=== PATIENT | male | born 1945 | race Caucasian/White ===

== ENCOUNTER → 2019-08-25 08:42 | Outpatient (CLI) | payer OTHER, SELFPAY ==
[2019-08-25 10:38] LABS: Add Manual Diff / Slide Review NO; Basophils Absolute Auto 0 /uL (0-100); Basophils Percent Auto 0.9 % (0-2); Eosinophils Absolute Auto 100 /uL (0-450); Eosinophils Percent Auto 1.5 % (2-4); Hematocrit 37.5 % (41-53); Hemoglobin 12.9 g/dL (13.5-17.5); Lymphocytes Absolute Auto 1000 /uL (1100-4500); Mean Corpuscular HGB Conc 34.5 % (30-36); Mean Corpuscular Volume 89.8 fL (80-100); Monocytes Absolute Auto 600 /uL (0-900); Monocytes Percent Auto 10.7 % (3-14); Neutrophils Absolute Auto 3700 /uL (1500-7000); Neutrophils Percent Auto 68.9 % (50-75); Platelet Count 278 X10^3/uL (150-400); Red Blood Cell Count 4.17 X10^6/uL (4.5-5.9); Red Cell Distribution Width 15.2 % (11.6-14.8); White Blood Cell Count 5.3 X10^3/uL (4.5-11.0)
[2019-08-25 10:52] LABS: Alanine Aminotransferase 44 IU/L (<50); Albumin 3.7 g/dL (3.5-5.0); Albumin Globulin Ratio 1.3 (1.0-2.8); Alkaline Phosphatase 89 U/L (38-126); Aspartate Aminotransferase 61 IU/L (17-59); BUN Creatinine Ratio 25.7 (6-22); Bilirubin Total 0.6 mg/dL (0.2-1.3); Blood Urea Nitrogen 18 mg/dL (9-20); Calcium 9.2 mg/dL (8.4-10.2); Carbon Dioxide 25 mmol/L (22-32); Chloride 105 mmol/L (98-107); Cholesterol 148 mg/dL (140-199); Estimated Glomerular Filt Rate > 60.0 mL/min (>60); Globulin 2.8 g/dL (1.7-4.1); Glucose 112 mg/dL (80-110); HDL Cholesterol 41 mg/dL (40-60); HEMOLYSIS < 15 (0-50); LDL Cholesterol Calculated 94 mg/dL (<100); Potassium 3.8 mmol/L (3.4-5.1); Sodium 137 mmol/L (137-145); Total Protein 6.5 g/dL (6.3-8.2); Triglycerides 66 mg/dL (35-150)
[2019-08-25 11:23] LABS: Thyroid Stimulating Hormone 2.51 uIU/mL (0.47-4.68)
== END ==
PROVIDERS: PCP Family Medicine; Visit Provider Nurse Practitioner
DX: F31.12 Bipolar disorder, current episode manic without psychotic features, moderate (principal); Z79.899 Other long term (current) drug therapy; R10.9 Unspecified abdominal pain; M54.16 Radiculopathy, lumbar region; Z85.46 Personal history of malignant neoplasm of prostate
CPT/HCPCS: 36415; 80053; 80061; 84443; 85025

== ENCOUNTER 2019-08-29 22:08 | Emergency (ER) | payer OTHER, SELFPAY ==
[2019-08-29 22:14] VITALS: BP 146/68; PULSE 90; RESP 14; TEMP 37.1; O2SAT 99; BMI 28.8
--- NOTE | 2019-08-29 22:39 | ED_ITS ---
HPI - Extremity Problem General Chief complaint: Extremity Problem,Nontraumatic Stated complaint: SWELLING OF LEGS AND FEET Time Seen by Provider: 08/29/19 22:08 Source: patient Mode of arrival: Wheelchair Limitations: no limitations History of Present Illness HPI Narrative: 73M former smoker with history of a bipolar presents with a chief complaint of bilateral lower extremity swelling for the past a few days to weeks. Patient has a history of the same and had been on a ?water pills? in the past. Patient was seen and evaluated at the walk-in clinic a few days ago and had extensive lab work which was unremarkable. Patient denies any chest pain or shortness of breath. He denies any exertional dyspnea. He has had no runny nose, sore throat or cough. He has had no fever or chills. MD Complaint: extremity swelling Onset (ago): day(s) Location: left, right and lower extremity Radiation: none Relieving factors: nothing Exacerbating factors: nothing Related Data Previous Rx's Medication Instructions Recorded furosemide 20 mg PO QAM #30 tab 02/12/17 citalopram 40 mg PO QDAY #30 tab 03/20/17 lamotrigine [Lamictal] 50 mg PO Q DAY #70 tab 03/27/17 furosemide [Lasix] 40 mg PO DAILY #7 tab 08/29/19 hydroxyzine HCl 25 mg PO QID PRN #20 tab 08/29/19 lamotrigine [Lamictal] 50 mg PO Q12H 14 Days #56 tab 08/29/19 potassium chloride 20 meq PO DAILY #7 tab 08/29/19 Allergies Allergy/AdvReac Type Severity Reaction Status Date / Time No Known Drug Allergies Allergy Verified 08/29/19 22:17 Review of Systems Constitutional Constitutional: Denies chills, Denies fatigue, Denies fever(s), Denies frequent falls, Denies lethargy and Denies weakness Eyes Eyes: Denies change in vision, Denies eye discharge, Denies irritation and Denies loss of vision ENT Ears, Nose, Mouth, and Throat: Denies change in voice, Denies dizziness, Denies neck pain, Denies sore throat and Denies throat swelling Cardiovascular Cardiovascular: Denies chest pain, Denies irregular heart rhythm, Reports leg edema, Denies lightheadedness, Denies palpitations, Denies dyspnea, Denies dyspnea on exertion and Denies orthopnea Respiratory Respiratory: Denies cough, Denies dyspnea, Denies dyspnea on exertion and Denies wheezing Gastrointestinal Gastrointestinal: Denies abdominal pain, Denies change in bowel habits, Denies diarrhea, Denies nausea and Denies vomiting Genitourinary Genitourinary: Denies hematuria, Denies flank pain, Denies urinary incontinence and Denies urinary urgency Musculoskeletal Musculoskeletal: Denies back pain, Denies muscle weakness, Denies neck pain, Denies numbness and Denies tingling Integumentary/Breasts Skin/Breast: Denies pruritus, Denies erythema, Denies rash and Denies wounds Neurologic Neurologic: Denies behavioral changes, Denies confusion, Denies dizziness, Denies frequent falls, Denies loss of vision, Denies numbness, Denies tingling and Denies weakness Psychiatric Psychiatric: Denies anxiety, Denies behavioral changes, Denies confusion, Denies depression, Denies homicidal ideation and Denies suicidal ideation Endocrine Endocrine: Denies fatigue, Denies flushing and Denies palpitations Hematologic/Lymphatic Hematologic/Lymphatic: Denies easy bruising Allergic/Immunologic Allergic/Immunologic: Denies urticaria, Denies throat swelling and Denies wheezing Patient History Social History Smoking Status: Former smoker Smoking Status: Former smoker Substance Use Type: does not use Exam Narrative Exam Narrative: GEN: AOx3 and in mild distress EYES: Pupils are equal, round, and reactive to light and accommodation. Extraoccular muscles are intact bilaterally. There is no subconjunctival hemorrhage or exudate. CHEST: Lungs are clear to auscultation bilaterally and free of wheezes, rales, or rhonchi. Heart rate is regular rhythm, there are no murmurs, clicks, rubs, or gallops. There is no chest wall tenderness. ABD: Abdomen is soft and nontender. There is no guarding or rebound. Bowel sounds are normal in all 4 quadrants. There is no mass or organomegaly. EXT: 2+ pitting edema B/L LE. No pain, redness or warmth. SKIN: Warm, pink, and dry. No erythema or rash Initial Vital Signs Initial Vital Signs: Vital Signs Temperature 98.8 F 08/29/19 22:14 Pulse Rate 90 08/29/19 22:14 Respiratory Rate 14 08/29/19 22:14 Blood Pressure 146/68 H 08/29/19 22:14 Pulse Oximetry 99 08/29/19 22:14 Course Orders Ordered: Discontinued Medications Furosemide (Lasix) 40 mg PO NOW ONE Stop: 08/29/19 22:49 Last Admin: 08/29/19 22:57 Dose: 40 mg Documented by: GUERDA Hydroxyzine Pamoate (Vistaril) 25 mg PO NOW ONE Stop: 08/29/19 22:49 Last Admin: 08/29/19 22:57 Dose: 25 mg Documented by: GUERDA Vital Signs Vital signs: Vital Signs - 8 hr 08/29/19 23:04 Pulse Rate 92 H Respiratory Rate 18 Blood Pressure 151/65 H Pulse Oximetry 99 MDM - Extremity (Nontraumatic) MDM Narrative Medical decision making narrative: extensive discussion with patient about evaluation including labs, EKG, and imaging. Patient feels great, and had normal eval a few days ago. He does not want any new work up. He understands return precautions. Discharge Plan Departure Patient Disposition: Home Clinical Impression: Edema of both legs, Bipolar 1 disorder Discharge Date/Time: 08/29/19 23:17 Instructions: DI for Peripheral Edema -- Bilateral Activity Restrictions/Additional Instructions: *You have been diagnosed with [bilateral lower extremity edema and bipolar] *What to do: *Take medications as directed: Prescriptions electronically transmitted to [email or web address] in [place] at your request *Follow up with your primary care provider as planned. Let them know you were seen in the Emergency Department and that we ask that you be seen in follow up *Return to ER if you should have any new, worsening or concerning symptoms Prescriptions: New hydroxyzine HCl 25 mg tablet 25 mg PO QID PRN (Reason: itching) Qty: 20 RF: 0 lamotrigine [Lamictal] 25 mg tablet 50 mg PO Q12H 14 Days Qty: 56 RF: 0 furosemide [Lasix] 40 mg tablet 40 mg PO DAILY Qty: 7 RF: 0 potassium chloride 20 mEq tablet extended release 20 meq PO DAILY Qty: 7 RF: 0 No Action furosemide 20 MG tablet 20 mg PO QAM Qty: 30 RF: 2 citalopram 40 MG tablet 40 mg PO QDAY Qty: 30 RF: 2 lamotrigine [Lamictal] 25 MG tablet 50 mg PO Q DAY Qty: 70 RF: 0 Referrals: Latonya Abdi DO [Primary Care Provider] -
[2019-08-29] MEDS: hydrOXYzine pamoate 25 MG CAPSULE PO (22:57)
[2019-08-29] MEDS: FUROSEMIDE 40 MG TABLET PO (22:57)
[2019-08-29 23:04] VITALS: BP 151/65; PULSE 92; RESP 18; O2SAT 99
== END 2019-08-29 23:17 | disposition home or self-care (01) ==
PROVIDERS: Emergency Provider Emergency Medicine; PCP Family Medicine
DX: R60.0 Localized edema (principal); F31.9 Bipolar disorder, unspecified
CPT/HCPCS: 99281; 99283

== ENCOUNTER 2019-08-30 18:57 | Emergency (ER) | payer OTHER, SELFPAY ==
--- NOTE | 2019-08-30 19:23 | PC.NURSE ---
1905 patient sitting in waiting room after getting coffee.
[2019-08-30 19:32] VITALS: BP 151/72; PULSE 92; RESP 17; TEMP 36.9; O2SAT 99; BMI 28.8
--- NOTE | 2019-08-30 19:41 | ED.BACK ---
HPI - Back Pain/Injury General Chief Complaint: Back Pain/Injury Stated Complaint: multiple complaints of pain on going issues Time Seen by Provider: 08/30/19 19:00 Source: patient Mode of arrival: Ambulatory Limitations: no limitations History of Present Illness HPI Narrative: 73-year-old male former smoker with a bipolar disorder returns for the 2nd time in 2 days. He was seen and evaluated last night and had complained of painless bilateral lower extremity edema for the past few days. He denied associated symptoms such as chest pain or shortness of breath and is not dizzy nor weak or lightheaded. He has had no fever chills. He was recently seen in the walk-in clinic and had extensive lab work which was unremarkable. Today he presents because he was sitting on the toilet and developed an episode of his chronic back pain and was hoping that we could give him some medications to help. He had taken Motrin but it upsets his stomach. He denies any injury. He denies any fever. He denies any radiation of pain or neurologic symptoms such as numbness, tingling or weakness. He denies problems with foot drop or difficulty controlling bowel or bladder. He denies saddle anesthesia. MD Complaint: back pain Onset (ago): month(s) Duration: improved and now resolved Similar Symptoms Previously: Yes Location: lumbar spine Severity: moderate Quality: aching Radiation: none Relieving factors: none Exacerbating factors: movement Context: bending Associated symptoms: denies other symptoms Related Data Previous Rx's Medication Instructions Recorded furosemide 20 mg PO QAM #30 tab 02/12/17 citalopram 40 mg PO QDAY #30 tab 03/20/17 lamotrigine [Lamictal] 50 mg PO Q DAY #70 tab 03/27/17 furosemide [Lasix] 40 mg PO DAILY #7 tab 08/29/19 hydroxyzine HCl 25 mg PO QID PRN #20 tab 08/29/19 lamotrigine [Lamictal] 50 mg PO Q12H 14 Days #56 tab 08/29/19 potassium chloride 20 meq PO DAILY #7 tab 08/29/19 ketorolac 10 mg PO Q6H PRN #14 tab 08/30/19 lidocaine [Lidoderm] 1 patch TOP DAILY #15 each 08/30/19 Allergies Allergy/AdvReac Type Severity Reaction Status Date / Time No Known Drug Allergies Allergy Verified 08/30/19 19:35 Review of Systems Constitutional Constitutional: Denies chills, Denies fatigue, Denies fever(s), Denies frequent falls, Denies lethargy and Denies weakness Eyes Eyes: Denies change in vision, Denies eye discharge, Denies irritation and Denies loss of vision ENT Ears, Nose, Mouth, and Throat: Denies change in voice, Denies dizziness, Denies neck pain, Denies sore throat and Denies throat swelling Cardiovascular Cardiovascular: Denies chest pain, Denies irregular heart rhythm, Reports leg edema, Denies lightheadedness, Denies palpitations, Denies dyspnea, Denies dyspnea on exertion and Denies orthopnea Respiratory Respiratory: Denies cough, Denies dyspnea, Denies dyspnea on exertion and Denies wheezing Gastrointestinal Gastrointestinal: Denies abdominal pain, Denies change in bowel habits, Denies diarrhea, Denies nausea and Denies vomiting Genitourinary Genitourinary: Denies hematuria, Denies flank pain, Denies urinary incontinence and Denies urinary urgency Musculoskeletal Musculoskeletal: Reports back pain, Denies muscle weakness, Denies neck pain, Denies numbness and Denies tingling Integumentary/Breasts Skin/Breast: Denies pruritus, Denies erythema, Denies rash and Denies wounds Neurologic Neurologic: Denies behavioral changes, Denies confusion, Denies dizziness, Denies frequent falls, Denies loss of vision, Denies numbness, Denies tingling and Denies weakness Psychiatric Psychiatric: Denies anxiety, Denies behavioral changes, Denies confusion, Denies depression, Denies homicidal ideation and Denies suicidal ideation Endocrine Endocrine: Denies fatigue, Denies flushing and Denies palpitations Hematologic/Lymphatic Hematologic/Lymphatic: Denies easy bruising Allergic/Immunologic Allergic/Immunologic: Denies urticaria, Denies throat swelling and Denies wheezing Patient History Social History Smoking Status: Former smoker Smoking Status: Former smoker alcohol intake frequency: 0-2 drinks per day Substance Use Type: does not use Exam Narrative Exam Narrative: GEN: AOx3 and in no obvious distress. Resting comfortably EYES: Pupils are equal, round, and reactive to light and accommodation. Extraoccular muscles are intact bilaterally. There is no subconjunctival hemorrhage or exudate. CHEST: Lungs are clear to auscultation bilaterally and free of wheezes, rales, or rhonchi. Heart rate is regular rhythm, there are no murmurs, clicks, rubs, or gallops. There is no chest wall tenderness. ABD: Abdomen is soft and nontender. There is no guarding or rebound. Bowel sounds are normal in all 4 quadrants. There is no mass or organomegaly. EXT: Full painless ROM of all extremities with no loss of sensation or strength. 2+ pitting edema unchanged since yesterday. SKIN: Warm, pink, and dry. No erythema or rash BACK: Back is nontender and free of any obvious external abnormalities. Patient exam is absent of any decreased range of motion, muscle spasm, CVA tenderness, or vertebral point tenderness. There are no symptoms of cauda equina such as saddle anesthesia, and decreased reflexes, decreased sensation or strength. Initial Vital Signs Initial Vital Signs: Vital Signs Temperature 98.5 F 08/30/19 19:32 Pulse Rate 92 H 08/30/19 19:32 Respiratory Rate 17 08/30/19 19:32 Blood Pressure 151/72 H 08/30/19 19:32 Pulse Oximetry 99 08/30/19 19:32 Course Orders Ordered: Discontinued Medications Cyclobenzaprine HCl (Flexeril 10 Mg Prepack) 1 bottle MISC SEEINSTR ONE Stop: 08/30/19 19:51 Last Admin: 08/30/19 20:02 Dose: 1 bottle Documented by: BOBBY Ketorolac Tromethamine (Toradol) 60 mg IM NOW ONE Stop: 08/30/19 19:51 Last Admin: 08/30/19 20:01 Dose: 60 mg Documented by: BOBBY Lidocaine (Lidoderm) 1 each TOP NOW ONE Stop: 08/30/19 19:51 Last Admin: 08/30/19 20:02 Dose: 1 each Documented by: BOBBY Vital Signs Vital signs: Vital Signs - 8 hr 08/30/19 19:32 08/30/19 20:15 Temperature 98.5 F Pulse Rate 92 H 93 H Respiratory Rate 17 16 Blood Pressure 151/72 H Blood Pressure [Left Arm] 148/65 H Pulse Oximetry 99 98 MDM - Back Pain/Injury MDM Narrative Medical decision making narrative: Multiple etiologies for patient's symptoms considered including: [Muscle spasm versus strain versus epidural abscess versus hematoma versus kidney stone versus AAA versus other] Patient's symptoms improved or duration of stay with above-stated therapies. Findings and discharge diagnosis discussed with patient/family followed by verbalization of understanding Return precautions discussed with patient/family whom verbalize understanding. Discharge Plan Departure Patient Disposition: Home Clinical Impression: Strain of lumbar region Qualifiers: Encounter type: initial encounter Qualified Code(s): S39.012A - Strain of muscle, fascia and tendon of lower back, initial encounter Discharge Date/Time: 08/30/19 20:17 Instructions: DI for Back Spasm Activity Restrictions/Additional Instructions: *You have been diagnosed with [ acute on chronic lumbar pain ] *What to do: *Take medications as directed *Follow up with your primary care provider in 2-3 days, call for an appointment. Let them know you were seen in the Emergency Department and that we ask that you be seen in follow up *Return to ER if you should have any new, worsening or concerning symptoms Prescriptions: New ketorolac 10 mg tablet 10 mg PO Q6H PRN (Reason: pain) Qty: 14 RF: 0 lidocaine [Lidoderm] 5 % adhesive patch,medicated 1 patch TOP DAILY Qty: 15 RF: 0 No Action furosemide 20 MG tablet 20 mg PO QAM Qty: 30 RF: 2 citalopram 40 MG tablet 40 mg PO QDAY Qty: 30 RF: 2 lamotrigine [Lamictal] 25 MG tablet 50 mg PO Q DAY Qty: 70 RF: 0 hydroxyzine HCl 25 mg tablet 25 mg PO QID PRN (Reason: itching) Qty: 20 RF: 0 lamotrigine [Lamictal] 25 mg tablet 50 mg PO Q12H 14 Days Qty: 56 RF: 0 furosemide [Lasix] 40 mg tablet 40 mg PO DAILY Qty: 7 RF: 0 potassium chloride 20 mEq tablet extended release 20 meq PO DAILY Qty: 7 RF: 0 Referrals: [facility] [Outside] [facility] [Outside] aLtonya Abdi DO [Primary Care Provider] -
[2019-08-30] MEDS: KETOROLAC 60 MG/2 ML VIAL IM (20:01)
[2019-08-30] MEDS: LIDOCAINE PATCH 1 EACH ADH..PATCH TOP (20:02)
[2019-08-30] MEDS: CYCLOBENZAPRINE 10 MG PREPACK 1 BOTTLE MISC (20:02)
--- NOTE | 2019-08-30 20:07 | PC.NURSE ---
CSM fully intact. Pain is across the waistband. No neuro deficit. Moving all extremities equally well.
[2019-08-30 20:15] VITALS: BP 148/65; PULSE 93; RESP 16; O2SAT 98
== END 2019-08-30 20:17 | disposition home or self-care (01) ==
PROVIDERS: Emergency Provider Emergency Medicine; PCP Family Medicine
DX: S39.012A Strain of muscle, fascia and tendon of lower back, initial encounter (principal)
CPT/HCPCS: 96372; 99281; 99283; J1885

== ENCOUNTER 2019-11-06 23:47 | Emergency (ER) | payer OTHER, SELFPAY ==
--- NOTE | 2019-11-07 00:01 | ED_ITS ---
HPI - Abdominal Pain General Chief Complaint: Chest Pain Stated Complaint: sharp pain right side of chest Time Seen by Provider: 11/06/19 23:47 Source: patient Mode of arrival: Ambulatory Limitations: no limitations History of Present Illness HPI narrative: 74-year-old male former smoker with history of bipolar presents with a chief complaint of right-sided sharp chest pain worse with breathing or moving. He denies any cough or shortness of breath. He denies any injury or obvious overuse. He has not recently been ill with runny nose, sneezing or fever. He denies other cardiac equivalent such as dizziness, weakness or lightheadedness. He denies any history of blood clot or cancer. He states the pain is sharp and stabbing. He denies exertional provocation MD complaint: other Onset (ago): day(s) Pain Consistency: intermittent Severity: moderate Quality: sharp Radiation: none Relieving factors: rest Exacerbating factors: other (movement, deep breath) Related Data Previous Rx's Medication Instructions Recorded hydroxyzine HCl 25 mg PO QID PRN #20 tab 08/29/19 potassium chloride 20 meq PO DAILY #7 tab 08/29/19 lidocaine [Lidoderm] 1 patch TOP DAILY #15 each 08/30/19 lamotrigine 25 mg tablet 25 mg PO BID 30 Days #60 tab 10/29/19 losartan 50 mg-hydrochlorothiazide 1 tab PO DAILY #30 tab 10/30/19 12.5 mg tablet sulfamethoxazole 800 1 tab PO BID #20 tab 10/30/19 mg-trimethoprim 160 mg tablet ketorolac 10 mg PO Q6H PRN #14 tab 11/07/19 Allergies Allergy/AdvReac Type Severity Reaction Status Date / Time No Known Drug Allergies Allergy Verified 10/30/19 15:42 Review of Systems Constitutional Constitutional: Denies chills, Denies fatigue, Denies fever(s), Denies frequent falls, Denies lethargy and Denies weakness Eyes Eyes: Denies change in vision, Denies eye discharge, Denies irritation and Denies loss of vision ENT Ears, Nose, Mouth, and Throat: Denies change in voice, Denies dizziness, Denies neck pain, Denies sore throat and Denies throat swelling Cardiovascular Cardiovascular: Reports chest pain, Denies irregular heart rhythm, Denies lightheadedness, Denies palpitations, Denies dyspnea, Denies dyspnea on exertion and Denies orthopnea Respiratory Respiratory: Denies cough, Denies dyspnea, Denies dyspnea on exertion and Denies wheezing Gastrointestinal Gastrointestinal: Denies abdominal pain, Denies change in bowel habits, Denies diarrhea, Denies nausea and Denies vomiting Genitourinary Genitourinary: Denies hematuria, Denies flank pain, Denies urinary incontinence and Denies urinary urgency Musculoskeletal Musculoskeletal: Denies back pain, Denies muscle weakness, Denies neck pain, Denies numbness and Denies tingling Integumentary/Breasts Skin/Breast: Denies pruritus, Denies erythema, Denies rash and Denies wounds Neurologic Neurologic: Denies behavioral changes, Denies confusion, Denies dizziness, Denies frequent falls, Denies loss of vision, Denies numbness, Denies tingling and Denies weakness Psychiatric Psychiatric: Denies anxiety, Denies behavioral changes, Denies confusion, Denies depression, Denies homicidal ideation and Denies suicidal ideation Endocrine Endocrine: Denies fatigue, Denies flushing and Denies palpitations Hematologic/Lymphatic Hematologic/Lymphatic: Denies easy bruising Allergic/Immunologic Allergic/Immunologic: Denies urticaria, Denies throat swelling and Denies wheezing Patient History Medical History Excessive daytime sleepiness (Acute) Social History Smoking Status: Former smoker Smoking Status: Former smoker alcohol intake frequency: 0-2 drinks per day Substance Use Type: does not use Exam Narrative Exam Narrative: GENERAL: [74] year old patient appears stated age. Well- nourished, well-developed patient, in mild distress. HEAD: Atraumatic. Normocephalic. EYES: Pupils equal round and reactive. Extraocular motions intact. No scleral i cterus. No injection or drainage. ENT: Nose without bleeding, purulent drainage. Throat without erythema, tonsillar hypertrophy or exudate. Airway patent. NECK: Trachea midline. Non tender CARDIOVASCULAR: Regular rate and rhythm without murmurs, gallops, or rubs. Not worsened with palpation but with deep breath RESPIRATORY: Clear to auscultation. Breath sounds equal bilaterally. No wheezes, rales, or rhonchi. GASTROINTESTINAL: Abdomen soft, non-tender, nondistended. EXTREMITIES: No edema or joint tenderness. BACK: Nontender without deformity or crepitance. No flank tenderness. NEURO: AOx3. SKIN: No rash or erythema of visible areas Initial Vital Signs Initial Vital Signs: Vital Signs Temperature 98.3 F 11/07/19 00:02 Pulse Rate 80 11/07/19 00:02 Respiratory Rate 20 11/07/19 00:02 Blood Pressure 145/63 H 11/07/19 00:02 Pulse Oximetry 98 11/07/19 00:02 Course Course Course Narrative: Patient had complete resolution of symptoms after above-stated therapies. Orders Ordered: ED Orders 11/07/19 00:09 EKG-12 Lead Stat 11/07/19 00:10 XR chest 2V Stat Complete Blood Count AUTO DIFF Stat Comprehensive Metabolic Panel Stat Lipase Stat Troponin & CK Cardiac Panel Stat Sodium Chloride (Normal Saline 0.9%) 1,000 mls @ 150 mls/hr IV CONT DALJIT Last Admin: 11/07/19 00:23 Dose: 150 mls/hr Documented by: JR Discontinued Medications Ketorolac Tromethamine (Toradol) 15 mg IV NOW ONE Stop: 11/07/19 00:10 Last Admin: 11/07/19 00:22 Dose: 15 mg Documented by: JR Vital Signs Vital signs: Vital Signs - 8 hr 11/07/19 00:02 Temperature 98.3 F Pulse Rate 80 Respiratory Rate 20 Blood Pressure 145/63 H Pulse Oximetry 98 MDM - Abdominal Pain Lab Data Result diagrams: 11/07/19 00:10 11/07/19 00:10 Labs: Lab Results 11/07/19 11/07/19 Range/Units 00:10 00:10 WBC 8.9 (4.5-11.0) X10^3/uL RBC 4.41 L (4.5-5.9) X10^6/uL Hgb 13.0 L (13.5-17.5) g/dL Hct 38.2 L (41-53) % MCV 86.7 (80-100) fL MCH 29.4 (26-34) PG MCHC 33.9 (30-36) % RDW 14.2 (11.6-14.8) % Plt Count 238 (150-400) X10^3/uL Neut % (Auto) 65.6 (50-75) % Lymph % (Auto) 20.7 L (25-40) % [place] % (Auto) 11.4 (3-14) % Eos % (Auto) 1.5 L (2-4) % Baso % (Auto) 0.8 (0-2) % Neut # (Auto) 5900 (6691-6990) /uL Lymph # (Auto) 1800 (7120-9960) /uL [place] # (Auto) 1000 H (0-900) /uL Eos # (Auto) 100 (0-450) /uL Baso # (Auto) 100 (0-100) /uL Sodium 135 L (137-145) mmol/L Potassium 3.8 (3.4-5.1) mmol/L Chloride 101 (98-107) mmol/L Carbon Dioxide 28 (22-32) mmol/L BUN 24 H (9-20) mg/dL Creatinine 1.00 (0.66-1.25) mg/dL Estimated GFR > 60.0 (>60) mL/min BUN/Creatinine Ratio 24.0 H (6-22) Glucose 131 H (80-110) mg/dL Calcium 9.1 (8.4-10.2) mg/dL Total Bilirubin 0.4 (0.2-1.3) mg/dL AST 41 (17-59) IU/L ALT 30 (<50) IU/L Alkaline Phosphatase 82 (38-126) U/L Total Creatine Kinase 406 H (55-170) U/L CK-MB (CK-2) 7.79 H (<2.37) ng/mL CK-MB (CK-2) Rel Index 1.9 (1.5-5.0) % Troponin I < 0.012 (0.01-0.034) ng/mL Total Protein 6.9 (6.3-8.2) g/dL Albumin 3.9 (3.5-5.0) g/dL Globulin 3.0 (1.7-4.1) g/dL Albumin/Globulin Ratio 1.3 (1.0-2.8) Lipase 68 (23-300) U/L Imaging Data Chest x-ray: My Impression: NAP. ECG Data Attestation: I personally reviewed and interpreted this ECG as follows: Prior ECG tracings: not available for review Interpretation: EKG is normal sinus rhythm rate [ 82] and free of any signs of ischemia or ectopy. No ST segmental elevation or depression. No T wave inversio ns. RBBB MDM Narrative Medical decision making narrative: Multiple causes of chest pain considered including [place], PE, pneumothorax, pneumonia, aortic dissection, and pleurisy. Patient reports no radiation, no diaphoresis, no provocation with exertion, and no vomiting Patient's symptoms improved or duration of stay with above-stated therapies. Findings and discharge diagnosis discussed with patient/family followed by verb alization of understanding Return precautions discussed with patient/family whom verbalize understanding. Discharge Plan Departure Patient Disposition: Home Clinical Impression: Atypical chest pain Instructions: DI for Atypical Chest Pain Activity Restrictions/Additional Instructions: *You have been diagnosed with [atypical chest pain] *What to do: *Take medications as directed: Electronically transmitted to [facility] at your request *Follow up with your primary care provider in 2-3 days, call for an appointment. Let them know you were seen in the Emergency Department and that we ask that you be seen in follow up *Return to ER if you should have any new, worsening or concerning symptoms Prescriptions: Continued ketorolac 10 mg tablet 10 mg PO Q6H PRN (Reason: pain) Qty: 14 RF: 0 No Action lamotrigine [Lamictal] 25 mg tablet 25 mg PO BID 30 Days Qty: 60 RF: 5 losartan-hydrochlorothiazide 50-12.5 mg tablet 1 tab PO DAILY Qty: 30 RF: 2 sulfamethoxazole-trimethoprim [Bactrim DS] 800-160 mg tablet 1 tab PO BID Qty: 20 RF: 0 hydroxyzine HCl 25 mg tablet 25 mg PO QID PRN (Reason: itching) Qty: 20 RF: 0 potassium chloride 20 mEq tablet extended release 20 meq PO DAILY Qty: 7 RF: 0 lidocaine [Lidoderm] 5 % adhesive patch,medicated 1 patch TOP DAILY Qty: 15 RF: 0 Referrals: David Caballero DO [Primary Care Provider] -
[2019-11-07 00:02] VITALS: BP 145/63; PULSE 80; RESP 20; TEMP 36.8; O2SAT 98
--- NOTE | 2019-11-07 00:10 | DI.RAD.S_ITS ---
PROCEDURE: XR CHEST 2V INDICATIONS: chest pain TECHNIQUE: 2 views of the chest were acquired. COMPARISON: None. FINDINGS: Surgical changes and devices: None. Lungs and pleura: Lungs are clear. No pleural effusions or pneumothorax. Mediastinum: Mediastinal contours are normal. Heart size is normal. Bones and chest wall: No suspicious bony abnormalities. Soft tissues appear unremarkable. IMPRESSION: No acute cardiopulmonary disease process. Dictated by: Poly Faust MD, PhD on 11/07/2019 at 8:18 Approved by: Poly Faust MD, PhD on 11/07/2019 at 8:18
[2019-11-07 00:20] LABS: Add Manual Diff / Slide Review NO; Basophils Absolute Auto 100 /uL (0-100); Basophils Percent Auto 0.8 % (0-2); Eosinophils Absolute Auto 100 /uL (0-450); Eosinophils Percent Auto 1.5 % (2-4); Hematocrit 38.2 % (41-53); Lymphocytes Absolute Auto 1800 /uL (1100-4500); Lymphocytes Percent Auto 20.7 % (25-40); Mean Corpuscular HGB Conc 33.9 % (30-36); Mean Corpuscular Hemoglobin 29.4 PG (26-34); Mean Corpuscular Volume 86.7 fL (80-100); Monocytes Absolute Auto 1000 /uL (0-900); Monocytes Percent Auto 11.4 % (3-14); Neutrophils Absolute Auto 5900 /uL (1500-7000); Neutrophils Percent Auto 65.6 % (50-75); Platelet Count 238 X10^3/uL (150-400); Red Blood Cell Count 4.41 X10^6/uL (4.5-5.9); Red Cell Distribution Width 14.2 % (11.6-14.8); White Blood Cell Count 8.9 X10^3/uL (4.5-11.0)
[2019-11-07] MEDS: KETOROLAC 60 MG/2 ML VIAL 15 MG IV (00:22)
[2019-11-07] MEDS: SODIUM CHLORIDE 0.9% 1,000 ML 150 ML IV (00:23)
[2019-11-07 00:28] LABS: Alanine Aminotransferase 30 IU/L (<50); Albumin 3.9 g/dL (3.5-5.0); Albumin Globulin Ratio 1.3 (1.0-2.8); Alkaline Phosphatase 82 U/L (38-126); Aspartate Aminotransferase 41 IU/L (17-59); Bilirubin Total 0.4 mg/dL (0.2-1.3); Blood Urea Nitrogen 24 mg/dL (9-20); Calcium 9.1 mg/dL (8.4-10.2); Carbon Dioxide 28 mmol/L (22-32); Chloride 101 mmol/L (98-107); Creatine Kinase 406 U/L (55-170); Estimated Glomerular Filt Rate > 60.0 mL/min (>60); Glucose 131 mg/dL (80-110); HEMOLYSIS < 15 (0-50); Lipase 68 U/L (23-300); Potassium 3.8 mmol/L (3.4-5.1); Sodium 135 mmol/L (137-145); Total Protein 6.9 g/dL (6.3-8.2)
[2019-11-07 00:40] LABS: Troponin I < 0.012 ng/mL (0.01-0.034)
[2019-11-07 00:43] LABS: CKMB % Relative Index 1.9 % (1.5-5.0); Creatine Kinase MB 7.79 ng/mL (<2.37)
[2019-11-07 01:53] VITALS: BP 139/60; PULSE 78; RESP 18; O2SAT 99
== END 2019-11-07 01:58 | disposition home or self-care (01) ==
PROVIDERS: Emergency Provider Emergency Medicine; PCP Family Medicine
DX: R07.89 Other chest pain (principal)
CPT/HCPCS: 71046; 80053; 82550; 82553; 83690; 84484; 85025; 93005; 93010; 96361; 96374; 99283; 99284; J1885

== ENCOUNTER → 2020-02-27 14:35 | Outpatient (CLI) | payer OTHER, SELFPAY ==
[2020-02-27 15:15] LABS: Add Manual Diff / Slide Review NO; Basophils Absolute Auto 100 /uL (0-100); Basophils Percent Auto 0.7 % (0-2); Eosinophils Absolute Auto 100 /uL (0-450); Eosinophils Percent Auto 1.9 % (2-4); Hematocrit 47.7 % (41-53); Hemoglobin 16.6 g/dL (13.5-17.5); Lymphocytes Absolute Auto 1700 /uL (1100-4500); Mean Corpuscular HGB Conc 34.9 % (30-36); Mean Corpuscular Hemoglobin 30.4 PG (26-34); Mean Corpuscular Volume 87.1 fL (80-100); Monocytes Absolute Auto 700 /uL (0-900); Monocytes Percent Auto 9.4 % (3-14); Neutrophils Absolute Auto 4800 /uL (1500-7000); Platelet Count 239 X10^3/uL (150-400); Red Blood Cell Count 5.47 X10^6/uL (4.5-5.9); Red Cell Distribution Width 14.4 % (11.6-14.8); White Blood Cell Count 7.4 X10^3/uL (4.5-11.0)
[2020-02-27 15:26] LABS: Alanine Aminotransferase 18 IU/L (<50); Albumin 4.9 g/dL (3.5-5.0); Albumin Globulin Ratio 1.6 (1.0-2.8); Alkaline Phosphatase 84 U/L (38-126); Aspartate Aminotransferase 29 IU/L (17-59); BUN Creatinine Ratio 23.9 (6-22); Bilirubin Total 0.9 mg/dL (0.2-1.3); Blood Urea Nitrogen 22 mg/dL (9-20); Calcium 9.9 mg/dL (8.4-10.2); Carbon Dioxide 27 mmol/L (22-32); Chloride 105 mmol/L (98-107); Estimated Glomerular Filt Rate > 60.0 mL/min (>60); Glucose 104 mg/dL (80-110); HEMOLYSIS < 15 (0-50); Potassium 4.4 mmol/L (3.4-5.1); Sodium 139 mmol/L (137-145); Total Protein 7.9 g/dL (6.3-8.2)
[2020-02-27 16:13] LABS: Vitamin B12 537 pg/mL (239-931)
[2020-02-27 16:29] LABS: Thyroid Stimulating Hormone 2.31 uIU/mL (0.47-4.68)
== END ==
PROVIDERS: PCP Family Medicine; Referring Provider Family Medicine; Visit Provider Family Medicine
DX: G47.19 Other hypersomnia (principal); I10 Essential (primary) hypertension
CPT/HCPCS: 36415; 80053; 82607; 84443; 85025

== ENCOUNTER 2020-10-15 02:03 | Emergency (ER) | payer OTHER, SELFPAY ==
[2020-10-15 02:14] VITALS: BP 162/84; PULSE 95; RESP 18; TEMP 36.4; O2SAT 95; BMI 28.1
--- NOTE | 2020-10-15 02:30 | DI.RAD.S_ITS ---
PROCEDURE: XR CHEST 2V INDICATIONS: cough TECHNIQUE: 2 views of the chest were acquired. COMPARISON: [facility], CR, XR CHEST 2V, 11/07/2019, 0:07. FINDINGS: Surgical changes and devices: None. Lungs and pleura: Lungs are clear. No pleural effusions or pneumothorax. Mediastinum: Mediastinal contours are normal. Heart size is normal. Bones and chest wall: Mild pectus deformity. No suspicious bony abnormalities. Soft tissues appear unremarkable. IMPRESSION: No acute cardiopulmonary disease process. Dictated by: Poly Faust MD, PhD on 10/15/2020 at 8:36 Approved by: Poly Faust MD, PhD on 10/15/2020 at 8:37
[2020-10-15 02:32] VITALS: BP 191/68; PULSE 94; RESP 18; O2SAT 96
--- NOTE | 2020-10-15 02:32 | ED.EXTPRO ---
HPI - Extremity Problem General Chief complaint: Extremity Problem,Nontraumatic Stated complaint: Leg Cramps Time Seen by Provider: 10/15/20 02:11 Source: patient Mode of arrival: other (bicycle) Limitations: no limitations History of Present Illness HPI Narrative: Patient is a 74-year-old male history of by alert presenting with a variety of complaints. He said that he has had leg cramps off and on for the past couple of months. They very pain in intensity hand location. He was able to ride his bike from his boat to the emergency department to have his leg cramps evaluated. He currently does not have any leg cramps. He said he woke up this evening to get something to eat got out of bed and had severe intense leg pain he was on all fours for about 5 minutes and then was able to get up. He spoke with a [facility] nurse who recommended he come to the ED for evaluation. He also states that he has had chronic ongoing cough for almost a year. He has a not any worse than normal. He denies any fever or sputum production. Denies any chest pain or shortness of breath. MD Complaint: extremity pain Onset (ago): month(s) Pain Consistency: now resolved Location: left, right and lower extremity Related Data Previous Rx's Medication Instructions Recorded ibuprofen 600 mg tablet 600 mg PO TID PRN #90 tab 01/21/20 lamotrigine 200 mg tablet 200 mg PO BID #60 tab 07/09/20 citalopram 40 mg tablet 40 mg PO DAILY #90 tab 08/06/20 hydroxyzine HCl 25 mg tablet 25 mg PO QID PRN #20 tab 08/06/20 Allergies Allergy/AdvReac Type Severity Reaction Status Date / Time No Known Drug Allergies Allergy Verified 08/06/20 10:52 Review of Systems Review of Systems Narrative: GENERAL: Denies chills, fatigue, malaise, fever, sweats, travel HEENT: Denies sinus pain, ear pain, sore throat, difficulty swallowing, neck pain RESPIRATORY: See HPI CARDIOVASCULAR: Denies chest pain, palpitations, orthopnea, edema GASTROINTESTINAL: Denies nausea, vomiting, abdominal pain, diarrhea, constipation, melena. : Denies dysuria, frequency, incontinence, hematuria, urinary retention, flank pain. MUSCULOSKELETAL: Denies weakness, joint pain, or bony pain SKIN: No rash, no erythema, no pruritus NEUROLOGIC: Denies weakness, dizziness, headache, numbness, change in speech, confusion PSYCHIATRIC: No concerning psychosocial issues. 12 point review of systems is negative except for those stated above and HPI Patient History Medical History Bilateral lower extremity edema Bipolar 1 disorder, depressed Excessive daytime sleepiness Leg wound, left Social History Smoking Status: Former smoker Smoking Status: Former smoker alcohol intake frequency: a few times a week Substance Use Type: does not use Exam Initial Vital Signs Initial Vital Signs: Vital Signs Temperature 97.5 F L 10/15/20 02:14 Pulse Rate 95 H 10/15/20 02:14 Respiratory Rate 18 10/15/20 02:14 Blood Pressure 162/84 H 10/15/20 02:14 Pulse Oximetry 95 10/15/20 02:14 GENERAL: Alert pleasant 74-year-old male and in no acute distress. HEENT: Head atraumatic,EOMI, pupils reactive, face symmetric, moist mucous membranes CARDIOVASCULAR: Regular rate and rhythm without murmurs, rubs or gallops. RESPIRATORY: Breath sounds equal bilaterally, no wheezes rales or rhonchi. ABDOMEN: Soft, nontender. Normoactive bowel sounds all 4 quadrants. No guarding or rebound. EXTREMITIES: Normal range of motion, no clubbing or edema. Neurovascularly intact. No calf pain or significant swelling NEUROLOGICAL: Alert and oriented x4.Normal gait and speech. Cranial nerves II through XII grossly intact. SKIN: Warm, dry, no laceration, no petechiae, no rashes or lesions. Right leg open sore no significant erythema or drainage no abscess or induration Course Orders Ordered: ED Orders 10/15/20 02:30 XR chest 2V Stat Discontinued Medications Ibuprofen (Ibuprofen 400 Mg Tablet) 800 mg PO NOW ONE Stop: 10/15/20 02:31 Last Admin: 10/15/20 02:35 Dose: 800 mg Documented by: Ibuprofen (Ibuprofen 400 Mg Tablet) 800 mg PO NOW ONE Stop: 10/15/20 02:32 Last Admin: 10/15/20 02:33 Dose: Not Given Documented by: Vital Signs Vital signs: Vital Signs - 8 hr 10/15/20 02:14 10/15/20 02:32 Temperature 97.5 F L Pulse Rate 95 H 94 H Respiratory Rate 18 18 Blood Pressure 162/84 H 191/68 H Pulse Oximetry 95 96 MDM - Extremity (Nontraumatic) Imaging Data Chest x-ray: Attestation: I personally reviewed and interpreted this imaging study as follows: My Impression: No acute cardiopulmonary process looks similar to previous chest x-ray Radiologist's Impression: Preliminary report chronic interstitial lung changes without focal consolidation MDM Narrative Medical decision making narrative: Patient was able to ride his bike here despite having leg cramps for 5 minutes. It sounds as though he is having chronic ongoing issues including leg cramps that are often on frequently along with a cough. Chest x-ray does not show any masses. He is given ibuprofen for his leg cramps which he no longer has. At this time I recommend he follow-up with his primary care provider for these ongoing issues. Discharge Plan Departure Patient Disposition: Home Clinical Impression: Chronic cough, Bilateral leg cramps Instructions: Nocturnal Leg Cramps, Stretching Routine Before Bedtime May Decrease Nighttime Leg Cramps Activity Restrictions/Additional Instructions: *You have been diagnosed with leg cramps *What to do: Have your electrolytes checked with her primary care provider fever continuing to have some leg cramps. I recommend some stretching and ibuprofen when you are having severe pain. Your chronic ongoing cough also needs evaluation by her primary care provider *Continue to take medications as directed Ibuprofen 600 mg every 6-8 hours if needed for [id number] pain *Follow up with your primary care provider in 2-3 days *Return to ER if you should have increasing shortness of breath, cough cope with fever elbow worsening leg pain or any new, worsening or concerning symptoms Prescriptions: No Action ibuprofen 600 mg tablet 600 mg PO TID PRN (Reason: pain) Qty: 90 RF: 1 citalopram [Celexa] 40 mg tablet 40 mg PO DAILY Qty: 90 RF: 1 hydroxyzine HCl 25 mg tablet 25 mg PO QID PRN (Reason: sleep) Qty: 20 RF: 5 lamotrigine 200 mg tablet 200 mg PO BID Qty: 60 RF: 5 Referrals: David Caballero DO [Primary Care Provider] -
[2020-10-15] MEDS: IBUPROFEN 400 MG TABLET 800 MG PO (02:35)
== END 2020-10-15 02:59 | disposition home or self-care (01) ==
PROVIDERS: Emergency Provider Emergency Medicine; PCP Family Medicine
DX: R05 Cough (principal); R25.2 Cramp and spasm; F31.9 Bipolar disorder, unspecified
CPT/HCPCS: 71046; 99283

== ENCOUNTER 2021-01-28 08:20 | Emergency (ER) | payer OTHER, SELFPAY ==
--- NOTE | 2021-01-28 08:28 | ED.GENADULT ---
HPI - General Adult General Chief complaint: Recheck/Abnormal Lab/Rx Stated complaint: sleep disorder, hardly functioning Time Seen by Provider: 01/28/21 08:26 Source: patient and old records reviewed Mode of arrival: Ambulatory Limitations: no limitations History of Present Illness HPI narrative: This is a 75-year-old male comes emergency department with complaint of insomnia. Patient states he is currently living on his boat which she has been doing for several years. He states he was in a long depressive ?funk? which improved several months ago. He states since then he has been much more active. States he will work several days on his but which he lives on and then spent several days resting and not doing much other than lying in bed. He states on the days that he is busy and active does not really sleep and she might take a short nap but does not sleep a significant amount of time. Patient states that sometimes he will just fall asleep and these episodes because he is having such a lack of sleep. Patient is try to take his Lamictal daily he does have a prescription but has difficulty remembering. He also is taking Celexa. He is also in the process of trying to set follow-up with Psychiatry persistent with managing his medications. He also was at his primary care office today to try to set up a follow-up appointment he states he has had difficulty following up because he forgets about his appointments. Patient states he was hospitalized once in the past. He states he received trazodone at that time which was helpful and had taken that in conjunction with the Lamictal. He unsure if he feels particularly groggy. He thinks he has also tried hydroxyzine in the past without much help. Patient denies other medical issues. He states that these episodes of sleeplessness alternating with sleeping for several days or distally in bed are likely his bipolar cycling but he states not as severe as in the past. Patient feels safe, he denies any thoughts of harming himself or others. He does not feel like his symptoms are rapidly worsening. He feels like eating some sleep may also help his symptoms. He denies any chest pain or shortness of breath, no nausea vomiting, no other GI or urinary symptoms. His any severe headaches. Patient states that he does think that he can stay safe taking something like trazodone for sleep and living on his boat. Related Data Previous Rx's Medication Instructions Recorded ibuprofen 600 mg tablet 600 mg PO TID PRN #90 tab 01/21/20 citalopram 40 mg tablet 40 mg PO DAILY #90 tab 08/06/20 hydroxyzine HCl 25 mg tablet 25 mg PO QID PRN #20 tab 08/06/20 lamotrigine 200 mg tablet 200 mg PO BID #60 tab 12/24/20 trazodone 50 mg PO BEDTIME PRN #14 tab 01/28/21 Allergies Allergy/AdvReac Type Severity Reaction Status Date / Time No Known Drug Allergies Allergy Verified 08/06/20 10:52 Review of Systems Review of Systems ROS Unobtainable: All systems reviewed & are unremarkable except as noted in HPI and below Patient History Medical History Bilateral lower extremity edema Bipolar 1 disorder, depressed Excessive daytime sleepiness Leg wound, left Social History Smoking Status: Former smoker Smoking Status: Former smoker alcohol intake frequency: a few times a week Substance Use Type: does not use Exam Narrative Exam Narrative: GENERAL: Alert and oriented x three, well-nourished elderly male in mild distress. HEENT: Head normocephalic, atraumatic, EOMI, pupils reactive, face symmetric, moist mucous membranes NECK: Supple, full range of motion CARDIOVASCULAR: Regular rate and rhythm without murmurs, rubs or gallops. RESPIRATORY: Breath sounds equal bilaterally, no wheezes rales or rhonchi. ABDOMEN: Soft, nontender. Normoactive bowel sounds all 4 quadrants. No guarding or rebound, rigidity, no mass : No CVA tenderness EXTREMITIES: Normal range of motion, no clubbing or edema. Neurovascularly intact NEUROLOGICAL: Cranial nerves II through XII grossly intact. Moving all extremities. Normal gait. SKIN: Warm, dry, no petechiae, no rashes or lesions. PSYCH: Insomnia, patient describes cycling through episodes of sleeplessness with episodes of lack of activity. Patient denies any suicidal homicidal thoughts. Patient denies any hallucinations. Initial Vital Signs Initial Vital Signs: Vital Signs Temperature 97.9 F 01/28/21 08:40 Pulse Rate 85 01/28/21 08:40 Respiratory Rate 18 01/28/21 08:40 Blood Pressure 145/68 H 01/28/21 08:40 Pulse Oximetry 97 01/28/21 08:40 Scores GCS Lawanda coma scale eye opening: Spontaneous Lawanda coma scale verbal response: Orientated Lawanda coma scale motor response: Obey commands Lawanda coma scale total score: 15 Course Vital Signs Vital signs: Vital Signs - 8 hr 01/28/21 08:40 Temperature 97.9 F Pulse Rate 85 Respiratory Rate 18 Blood Pressure 145/68 H Pulse Oximetry 97 Medical Decision Making MDM Narrative Medical decision making narrative: This is a 75-year-old male comes in with complaint of insomnia in the setting history of bipolar disorder. Patient likely is having some difficulty with his sleep secondary to cycling through manic and depressive episodes but he describes these as not as extreme is in the past on feels safe returning home. He has had trazodone in the past which has been helpful. He has taken this in conjunction with his current medication of Lamictal Celexa. Patient does have a prior EKG from 11/07/2019 which shows a right bundle-branch block with no QT prolongation. We did discuss if patient feels that he can maintain his safety while taking trazodone living on a boat and he does feel so. He is also currently in actively pursuing assistance to psychiatry in his primary care. Offered to have her long term care social worker reach out to him which he defers but he was happy to take the number for [facility] which is the suicide hotline but also resource referral line. Patient does have access to a phone that is pre paid and states he may reach out to them. Discharge Plan Departure Patient Disposition: Home Clinical Impression: Insomnia Activity Restrictions/Additional Instructions: Please continue to try to set follow-up with your physician or with the psychiatrist which you have already started to pursue. Do your best to take your Lamictal daily as prescribed. Take 1 tablet prior to bed to assist with sleep. This medication can make you sleepy do not drive, perform hazardous activities or make any major decisions taking it. Prescription sent to [facility] in [place]. If you're feeling suicidal or having suicidal thoughts, contact the suicide hotline (this number is also the referral for counseling, resources and additional help) . Please return for severe headaches, passing out, new chest pain or shortness of breath, persistent vomiting, new weakness numbness or tingling. If you are having thoughts of harming herself or others if you feel like your bipolar symptoms are acutely worsening and are unsafe or having trouble managing them. Prescriptions: New trazodone 50 mg tablet 50 mg PO BEDTIME PRN (Reason: insomnia) Qty: 14 RF: 0 No Action ibuprofen 600 mg tablet 600 mg PO TID PRN (Reason: pain) Qty: 90 RF: 1 lamotrigine 200 mg tablet 200 mg PO BID Qty: 60 RF: 5 citalopram [Celexa] 40 mg tablet 40 mg PO DAILY Qty: 90 RF: 1 hydroxyzine HCl 25 mg tablet 25 mg PO QID PRN (Reason: sleep) Qty: 20 RF: 5 Referrals: David Caballero DO [Primary Care Provider] -
[2021-01-28 08:40] VITALS: BP 145/68; PULSE 85; RESP 18; TEMP 36.6; O2SAT 97; BMI 29.6
[2021-01-28 08:58] VITALS: BP 132/67; PULSE 98; RESP 20; O2SAT 99
== END 2021-01-28 08:58 | disposition home or self-care (01) ==
PROVIDERS: Emergency Provider Emergency Medicine; PCP Family Medicine
DX: G47.00 Insomnia, unspecified (principal)
CPT/HCPCS: 99281

== ENCOUNTER 2021-11-12 02:14 | Emergency (ER) | payer OTHER, SELFPAY ==
[2021-11-12 02:23] VITALS: BP 169/84; PULSE 92; RESP 16; TEMP 37; O2SAT 97
--- NOTE | 2021-11-12 02:24 | ED.HEATRA ---
HPI - Head Injury General Chief complaint: Wound/Laceration Stated complaint: FELL LEFT EYE LACERATION Time Seen by Provider: 11/12/21 02:24 History of Present Illness HPI Narrative: 76-year-old male former smoker with history of bipolar and hypertension presents with a chief complaint of an accidental trip and fall from ground level in which she struck his face on the ground. In doing so, he suffered a laceration over his right eyebrow. He denies any loss of consciousness, nausea or vomiting. He had a few beers tonight. He denies any neck or back pain. He takes no blood thinners. He is otherwise well and free of complaint he states that he was using his bike, while straddling it and not moving as he was reaching over to grab something from the ground when his legs got caught up causing him to fall. He states his tetanus will need to be updated Related Data Previous Rx's Medication Instructions Recorded ibuprofen 600 mg tablet 600 mg PO TID PRN #90 tab 01/21/20 hydroxyzine HCl 25 mg tablet 25 mg PO QID PRN #20 tab 08/06/20 trazodone 50 mg tablet 50 mg PO BEDTIME PRN #14 tab 01/28/21 citalopram 40 mg tablet See Rx Instructions .ROUTE 07/22/21 .COMPLEX #90 tab lamotrigine 200 mg tablet 200 mg PO BID #90 tab 07/22/21 Allergies Allergy/AdvReac Type Severity Reaction Status Date / Time No Known Drug Allergies Allergy Verified 10/27/21 19:24 Review of Systems Review of Systems Narrative: GENERAL: Denies chills, fatigue, malaise, fever, sweats. HEENT: Denies sinus pain, ear pain, sore throat, difficulty swallowing, dizziness. RESPIRATORY: Denies dyspnea, cough, wheezing, hemoptysis, sputum. CARDIOVASCULAR: Denies chest pain, palpitations, orthopnea, edema, GASTROINTESTINAL: Denies nausea, vomiting, abdominal pain, diarrhea, constipation, melena. : Denies dysuria, frequency, incontinence, hematuria, urinary retention. MUSCULOSKELETAL: denies weakness, joint pain, or bony pain SKIN: See HPI NEUROLOGIC: Denies weakness, headache, numbness, change in speech, confusion, seizures, incoordination. PSYCHIATRIC: No concerning psychosocial issues. 12 point review of systems is negative except for those stated above Patient History Medical History Bilateral lower extremity edema Bipolar 1 disorder, depressed Excessive daytime sleepiness Leg wound, left Social History Smoking Status: Former smoker Smoking Status: Former smoker tobacco type: cigarettes alcohol intake frequency: a few times a month Substance Use Type: does not use Exam Narrative Exam Narrative: GENERAL: [76] year old patient appears stated age. Well-developed patient, in mild distress. GCS 15 HEAD: 3 cm deep laceration over right eyebrow minimal bleeding, no evidence of foreign body, no suspicion of depressed skull fracture EYES: Pupils equal round and reactive. No hyphema Extraocular motions intact. No scleral icterus. No injection or drainage. ENT: Nose without bleeding, purulent drainage. No nasal septal hematoma or hemotympanum Throat without erythema, tonsillar hypertrophy or exudate. Airway patent. NECK: Trachea midline. Non tender CARDIOVASCULAR: Regular rate and rhythm without murmurs, gallops, or rubs. RESPIRATORY: Clear to auscultation. Breath sounds equal bilaterally. No wheezes, rales, or rhonchi. GASTROINTESTINAL: Abdomen soft, non-tender, nondistended. EXTREMITIES: No edema or joint tenderness. BACK: Nontender without deformity or crepitance. No flank tenderness. NEURO: AOx3. SKIN: No rash or erythema of visible areas Initial Vital Signs Initial Vital Signs: Vital Signs Temperature 98.6 F 11/12/21 02:23 Pulse Rate 92 H 11/12/21 02:23 Respiratory Rate 16 11/12/21 02:23 Blood Pressure 169/84 H 11/12/21 02:23 Pulse Oximetry 97 11/12/21 02:23 Procedures Laceration Repair Laceration 1: Site: face Side (If applicable): right Size (cm): 3 Description: stellate Depth: involves muscle layer Local Anesthetic: lidocaine 1% and with bicarb Amount of anesthesia used (mL): 5 Pre-repair: wound explored, irrigated extensively and deep structures intact Skin layer closed with: nylon Size (cm): 6-0 Number of sutures: 7 Technique: simple, interrupted Course Orders Ordered: ED Orders 11/12/21 02:25 CT head/brain wo con Stat Discontinued Medications Diphtheria/Tetanus/Acell Pertussis (Tet,Diph,Pertuss(Acell),Vac/Pf 0.5 Ml Syringe) 0.5 ml IM .ONCE ONE Stop: 11/12/21 02:26 Last Admin: 11/12/21 02:48 Dose: 0.5 ml Documented by: JYOTSNA Lidocaine/Sodium Bicarbonate (Lido 1%/Sod Bicarb 8.4% (10ml) 10 Ml Syringe) 10 ml INJ NOW ONE Stop: 11/12/21 02:26 Last Admin: 11/12/21 02:49 Dose: 10 ml Documented by: JYOTSNA Vital Signs Vital signs: Vital Signs - 8 hr 11/12/21 02:23 Temperature 98.6 F Pulse Rate 92 H Respiratory Rate 16 Blood Pressure 169/84 H Pulse Oximetry 97 MDM - Head Injury Imaging Data CT scan - head: Radiologist's Impression: No CT evidence of acute intracranial pathology Discharge Plan Departure Patient Disposition: Home Clinical Impression: Facial laceration Activity Restrictions/Additional Instructions: Please keep the wound clean and dry to the best of your ability. Please monitor for signs of infection such as redness to the skin or increasing pain. Have the sutures/abril removed by your doctor in about 7 days. If you are unable to get into your doctor, we would be happy to remove the sutures/abril in that same timeframe. Prescriptions: No Action ibuprofen 600 mg tablet 600 mg PO TID PRN (Reason: pain) Qty: 90 1RF citalopram 40 mg tablet See Rx Instructions .ROUTE .COMPLEX Qty: 90 0RF Dose Instruction: take 1 tablet by mouth once daily Rx Instructions: take 1 tablet by mouth once daily lamotrigine 200 mg tablet 200 mg PO BID Qty: 90 0RF Rx Instructions: Take only 1 tablet daily for 2 weeks and then increase to twice daily. hydroxyzine HCl 25 mg tablet 25 mg PO QID PRN (Reason: sleep) Qty: 20 5RF trazodone 50 mg tablet 50 mg PO BEDTIME PRN (Reason: insomnia) Qty: 14 0RF Referrals: David Caballero DO [Primary Care Provider] -
--- NOTE | 2021-11-12 02:25 | DI.CT.S_ITS ---
PROCEDURE: CT HEAD/BRAIN WO CON INDICATIONS: fall with head injury TECHNIQUE: Noncontrast 4.5 mm thick angled axial sections acquired from the foramen magnum to the vertex, with coronal and sagittal reformats. For radiation dose reduction, the following was used: automated exposure control, adjustment of mA and/or kV according to patient size. COMPARISON: None. FINDINGS: Image quality: Excellent. CSF spaces: Basal cisterns are patent. No extra-axial fluid collections. Ventricles are normal in size and shape. Brain: No midline shift. No intracranial masses or hemorrhage. No area of hypodensity in a large vascular distribution to suggest acute infarction. Minimal chronic microvascular ischemic change. Age-related parenchymal loss. Skull and face: Calvarium and visualized facial bones are intact, without suspicious lesions. Mild soft tissue swelling at the right forehead. Sinuses: Visualized sinuses and mastoids are clear. IMPRESSION: No acute intracranial abnormality. Mild soft tissue swelling at the right forehead. This report is concordant with the overnight preliminary interpretation. Dictated by: Harrison Nunez M.D. on 11/12/2021 at 6:28 Approved by: Harrison Nunez M.D. on 11/12/2021 at 6:31
[2021-11-12] MEDS: TET,DIPH,PERTUSS(ACELL),VAC/PF 0.5 ML SYRINGE IM (02:48)
[2021-11-12] MEDS: LIDO 1%/SOD BICARB 8.4% (10ML) 10 ML SYRINGE INJ (02:49)
== END 2021-11-12 03:33 | disposition home or self-care (01) ==
PROVIDERS: Emergency Provider Emergency Medicine; PCP Family Medicine
DX: S01.111A Laceration without foreign body of right eyelid and periocular area, initial encounter (principal); V19.3XXA Pedal cyclist (driver) (passenger) injured in unspecified nontraffic accident, initial encounter; Y93.89 Activity, other specified; Z87.891 Personal history of nicotine dependence; Z23 Encounter for immunization
CPT/HCPCS: 12013; 70450; 90471; 99284; 90715

== ENCOUNTER 2021-12-06 02:18 | Emergency (ER) | payer OTHER, SELFPAY ==
--- NOTE | 2021-12-06 02:26 | DI.RAD.S_ITS ---
PROCEDURE: XR RIBS LT MIN 3V W CXR1V INDICATIONS: left rib pain post fall TECHNIQUE: 2 views of the left ribs were acquired, along with a single view chest. COMPARISON: None. FINDINGS: Surgical changes and devices: None. Bones and chest wall: Nondisplaced fracture involving the anterior left 8th rib. No other rib fractures are identified. Lungs and pleura: No pleural effusions or pneumothorax. Lungs appear clear except for mild bibasilar atelectasis. Mediastinum: Mediastinal contours appear normal. Heart size is normal. The aorta is tortuous. IMPRESSION: 1. Left 8th rib fracture without underlying pulmonary complication. 2. Bibasilar atelectasis. Comment: Final report is concordant with preliminary interpretation by [facility] Dictated by: Mushtaq Zurita M.D. on 12/06/2021 at 8:07 Approved by: Mushtaq Zurita M.D. on 12/06/2021 at 8:09
[2021-12-06 02:28] VITALS: BP 160/80; PULSE 78; RESP 22; TEMP 36.6; O2SAT 98
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
[2021-12-06] MEDS: TRAMADOL 50 MG TABLET PO (03:31)
--- NOTE | 2021-12-06 03:51 | PC.NURSE ---
left sided rib pain tender to palpation and inspiration
== END 2021-12-06 03:52 | disposition home or self-care (01) ==
PROVIDERS: Emergency Provider Emergency Medicine; PCP Family Medicine
DX: S22.32XA Fracture of one rib, left side, initial encounter for closed fracture (principal); V17.0XXA Pedal cycle driver injured in collision with fixed or stationary object in nontraffic accident, initial encounter; Y93.55 Activity, bike riding
CPT/HCPCS: 71101; 99283

== ENCOUNTER 2022-01-15 01:31 | Emergency (ER) | payer OTHER, SELFPAY ==
[2022-01-15 01:40] VITALS: BP 176/83; PULSE 71; RESP 18; TEMP 37.1; O2SAT 97; BMI 26.6
--- NOTE | 2022-01-15 01:49 | DI.RAD.S_ITS ---
PROCEDURE: XR SHOULDER RT MIN 2V INDICATIONS: fall with shoulder pain TECHNIQUE: 3 views of the shoulder were acquired. COMPARISON: [facility], CR, XR CHEST 2V, 10/15/2020, 2:33. FINDINGS: Bones: No fractures or dislocations. No suspicious bony lesions. Visualized ribs appear intact. Degenerative changes are seen, which are worst involving the acromioclavicular joint, with moderate irregularity. Milder degenerative changes are seen of the glenohumeral joint. Soft tissues: No suspicious soft tissue calcifications. The visualized lung demonstrates an unremarkable appearance. IMPRESSION: No acute plain film abnormality is seen. Focal acromioclavicular joint degenerative change. If it would be helpful for clinical management decision making, please consider a dedicated, scheduled shoulder MRI for further evaluation (assuming that there is no contraindication). Note: No significant discrepancy from the preliminary report. Dictated by: Titi Dickinson M.D. on 01/15/2022 at 7:13 Approved by: Titi Dickinson M.D. on 01/15/2022 at 7:14
--- NOTE | 2022-01-15 01:54 | ED.UPPEXIN ---
HPI - Extremity Injury (Upper) General Chief Complaint: Extremity Injury, Upper Stated Complaint: righ shoulder pain injury x7 days Time Seen by Provider: 01/15/22 01:33 Source: patient Mode of arrival: Ambulatory History of Present Illness HPI narrative: 76-year-old male former smoker with history of bipolar and hypertension presents with a chief complaint of an accidental trip and fall from ground level in which he landed on his right shoulder and injured himself about 1 week ago. He denies any head neck or back pain. He states that he has been too busy to come and get checked out but [place] wanted to be sure that he did not injure himself severely. He has pain in his right shoulder that is worse with motion and improves with rest though he can still uses arm and denies any numbness, tingling or weakness. He denies any prodromal symptoms contributing to his fall. He has no chest pain or shortness of breath. He has no nausea, vomiting or diarrhea. He is otherwise well and free of complaint Related Data Previous Rx's Medication Instructions Recorded ibuprofen 600 mg tablet 600 mg PO TID PRN #90 tab 01/21/20 hydroxyzine HCl 25 mg tablet 25 mg PO QID PRN #20 tab 08/06/20 trazodone 50 mg tablet 50 mg PO BEDTIME PRN #14 tab 01/28/21 citalopram 40 mg tablet See Rx Instructions .ROUTE 07/22/21 .COMPLEX #90 tab lamotrigine 200 mg tablet 200 mg PO BID #90 tab 07/22/21 tramadol 50 mg tablet 50 mg PO Q6-8H PRN #14 tab 12/06/21 Allergies Allergy/AdvReac Type Severity Reaction Status Date / Time No Known Drug Allergies Allergy Verified 10/27/21 19:24 Review of Systems Review of Systems Narrative: GENERAL: Denies chills, fatigue, malaise, fever, sweats. HEENT: Denies sinus pain, ear pain, sore throat, difficulty swallowing, dizziness. RESPIRATORY: Denies dyspnea, cough, wheezing, hemoptysis, sputum. CARDIOVASCULAR: Denies chest pain, palpitations, orthopnea, edema, GASTROINTESTINAL: Denies nausea, vomiting, abdominal pain, diarrhea, constipation, melena. : Denies dysuria, frequency, incontinence, hematuria, urinary retention. MUSCULOSKELETAL: See HPI SKIN: Denies rash, skin lesions, or other NEUROLOGIC: Denies weakness, headache, numbness, change in speech, confusion, seizures, incoordination. PSYCHIATRIC: No concerning psychosocial issues. 12 point review of systems is negative except for those stated above Patient History Medical History Bilateral lower extremity edema Bipolar 1 disorder, depressed Excessive daytime sleepiness Leg wound, left Social History Smoking Status: Former smoker Smoking Status: Former smoker tobacco type: cigarettes alcohol intake frequency: a few times a month Substance Use Type: does not use Exam Narrative Exam Narrative: GENERAL: [76] year old patient appears stated age. Well-developed patient, in mild distress. GCS 15 HEAD: Atraumatic. Normocephalic. EYES: Pupils equal round and reactive. Extraocular motions intact. No scleral icterus. No injection or drainage. ENT: Nose without bleeding, purulent drainage. Throat without erythema, tonsillar hypertrophy or exudate. Airway patent. NECK: Trachea midline. Non tender CARDIOVASCULAR: Regular rate and rhythm without murmurs, gallops, or rubs. RESPIRATORY: Clear to auscultation. Breath sounds equal bilaterally. No wheezes, rales, or rhonchi. GASTROINTESTINAL: Abdomen soft, non-tender, nondistended. EXTREMITIES: Full but painful range of motion of right shoulder with no obvious deformity. No numbness, tingling or weakness BACK: Nontender without deformity or crepitance. No flank tenderness. NEURO: AOx3. SKIN: No rash or erythema of visible areas Initial Vital Signs Initial Vital Signs: Vital Signs Temperature 98.7 F 01/15/22 01:40 Pulse Rate 71 01/15/22 01:40 Respiratory Rate 18 01/15/22 01:40 Blood Pressure 176/83 H 01/15/22 01:40 Pulse Oximetry 97 01/15/22 01:40 Course Orders Ordered: ED Orders 01/15/22 01:49 XR shoulder RT min 2V Stat Vital Signs Vital signs: Vital Signs - 8 hr 01/15/22 01:40 Temperature 98.7 F Pulse Rate 71 Respiratory Rate 18 Blood Pressure 176/83 H Pulse Oximetry 97 MDM - Extremity Injury (Upper) Imaging Data Extremity x-ray #1: Attestation: I personally reviewed and interpreted this imaging study as follows: My Impression: No fracture or dislocation Radiologist's Impression: NAP Discharge Plan Departure Patient Disposition: Home Clinical Impression: Sprain of right shoulder Instructions: DI for Shoulder Sprain Activity Restrictions/Additional Instructions: *You have been diagnosed with [right shoulder injury. History and physical exam are reassuring and x-ray shows no obvious fracture or dislocation *What to do: *Please continue to take your regular medications as directed. [ ] New medication prescriptions sent to your pharmacy: [ ] [ ] New medication written as a paper prescription [x ] No new medications given *Please follow up with your primary care provider in 2-3 days, call for an appointment. Let them know you were seen in the Emergency Department and that we ask that you be seen in follow up. We will electronically transmit a record of today's note if your PCP is in our system *If you do not have a primary care provider please contact the [facility] Resource line at [phone]. They will ask some questions about your medical history and help get you set up with a doctor in the community. *Return to Emergency Department if you should have any new, worsening or concerning symptoms, such as [fever greater than 101 F, shaking chills, worsening pain, persistent vomiting or other bothersome symptoms] Radiographic study has been interpreted by an emergency physician. The official diagnosis by radiology will be performed within the next 24 hours and should there be any change in outcome we will notify you of how to proceed. Prescriptions: No Action ibuprofen 600 mg tablet 600 mg PO TID PRN (Reason: pain) Qty: 90 1RF citalopram 40 mg tablet See Rx Instructions .ROUTE .COMPLEX Qty: 90 0RF Dose Instruction: take 1 tablet by mouth once daily Rx Instructions: take 1 tablet by mouth once daily lamotrigine 200 mg tablet 200 mg PO BID Qty: 90 0RF Rx Instructions: Take only 1 tablet daily for 2 weeks and then increase to twice daily. hydroxyzine HCl 25 mg tablet 25 mg PO QID PRN (Reason: sleep) Qty: 20 5RF trazodone 50 mg tablet 50 mg PO BEDTIME PRN (Reason: insomnia) Qty: 14 0RF tramadol 50 mg tablet 50 mg PO Q6-8H PRN (Reason: pain) Qty: 14 0RF Referrals: David Caballero DO [Primary Care Provider] -
== END 2022-01-15 02:24 | disposition home or self-care (01) ==
PROVIDERS: Emergency Provider Emergency Medicine; PCP Family Medicine
DX: S43.401A Unspecified sprain of right shoulder joint, initial encounter (principal); W19.XXXA Unspecified fall, initial encounter
CPT/HCPCS: 73030; 99283

== ENCOUNTER 2022-03-20 23:14 | Emergency (ER) | payer OTHER, SELFPAY ==
[2022-03-20 23:24] VITALS: BP 150/73; PULSE 76; RESP 18; TEMP 36.7; O2SAT 97; BMI 25.0
--- NOTE | 2022-03-20 23:28 | DI.RAD.S_ITS ---
PROCEDURE: XR CHEST 2V INDICATIONS: Persistant cough for 1 month TECHNIQUE: 2 views of the chest were acquired. COMPARISON: [facility], CT, CT KUB, 02/25/2022, 1:43. [facility], CR, XR CHEST 2V, 10/15/2020, 2:33. FINDINGS: Surgical changes and devices: None. Lungs and pleura: There are patchy indistinct opacities in the lung bases, right greater than left, corresponding to small areas of consolidation in the lung bases on the prior CT. No pleural effusions or pneumothorax. Mediastinum: Mediastinal contours are normal. Heart size is normal. Bones and chest wall: No suspicious bony abnormalities. Soft tissues appear unremarkable. IMPRESSION: 1. Patchy indistinct opacities in the lung bases corresponding to areas of consolidation on the prior CT are nonspecific but suggestive of pneumonia including from possible atypical etiologies. Dictated by: Yohannes Honeycutt M.D. on 03/21/2022 at 0:46 Approved by: Yohannes Honeycutt M.D. on 03/21/2022 at 0:48
--- NOTE | 2022-03-21 01:52 | ED_ITS ---
HPI - URI/Sore Throat General Chief Complaint: Upper Respiratory Symptoms Stated Complaint: Bronchitis Time Seen by Provider: 03/21/22 01:47 Source: patient Mode of arrival: Ambulatory Limitations: no limitations History of Present Illness HPI Narrative: This is a 76 year old male with known history of depression and bipolar on citalopram and takes Lamictal intermittently. Patient has had a cough for about a month. He states no fevers or chills. No chest pain or shortness of breath. No nausea or vomiting. No diarrhea constipation, no urinary symptoms. Patient states he did smoke in the past. Occasional alcohol, no illicit. He is had this persistent cough that just will not clear so finally presented for evaluation. Did do a COVID swab in the last 3-5 days states it was negative. He denies any drug allergies. Occasional alcohol, denies illicit. Related Data Previous Rx's Medication Instructions Recorded ibuprofen 600 mg tablet 600 mg PO TID PRN pain #90 tabs 01/21/20 hydroxyzine HCl 25 mg tablet 25 mg PO QID PRN sleep #20 tabs 08/06/20 trazodone 50 mg tablet 50 mg PO BEDTIME PRN insomnia #14 01/28/21 tabs citalopram 40 mg tablet See Rx Instructions .Route 07/22/21 .COMPLEX #90 tabs lamotrigine 200 mg tablet 200 mg PO BID #90 tabs 07/22/21 tramadol 50 mg tablet 50 mg PO Q6-8H PRN pain #14 tabs 12/06/21 amoxicillin 875 mg-potassium 1 tab PO Q12H #20 tabs 03/21/22 clavulanate 125 mg tablet Allergies Allergy/AdvReac Type Severity Reaction Status Date / Time No Known Drug Allergies Allergy Verified 03/20/22 23:30 Review of Systems Review of Systems ROS Unobtainable: All systems reviewed & are unremarkable except as noted in HPI and below Patient History Medical History Bilateral lower extremity edema Bipolar 1 disorder, depressed Excessive daytime sleepiness Leg wound, left Social History Smoking Status: Former smoker Smoking Status: Former smoker tobacco type: cigarettes alcohol intake frequency: a few times a month Substance Use Type: does not use Exam Narrative Exam Narrative: GENERAL: Alert and oriented x three, elderly male in mild distress. HEENT: Head normocephalic, atraumatic, EOMI, pupils reactive, face symmetric, moist mucous membranes NECK: Supple, full range of motion CARDIOVASCULAR: Regular rate and rhythm without murmurs, rubs or gallops. RESPIRATORY: Breath sounds equal bilaterally, no wheezes rales or rhonchi. No tachypnea or accessory muscle use. Patient does have chronic nonproductive cough in the room. ABDOMEN: Soft, nontender. Normoactive bowel sounds all 4 quadrants. No guarding or rebound, rigidity, no mass : No CVA tenderness EXTREMITIES: Normal range of motion, no clubbing or edema. Neurovascularly intact NEUROLOGICAL: Cranial nerves II through XII grossly intact. Moving all extremities SKIN: Warm, dry, no petechiae, no rashes or lesions. Initial Vital Signs Initial Vital Signs: Vital Signs Temperature 98.1 F 03/20/22 23:24 Pulse Rate 76 03/20/22 23:24 Respiratory Rate 18 03/20/22 23:24 Blood Pressure 150/73 H 03/20/22 23:24 Pulse Oximetry 97 03/20/22 23:24 Oxygen Delivery Method 03/20/22 23:24 Course Orders Ordered: ED Orders 03/20/22 23:28 XR chest 2V Stat Vital Signs Vital signs: Vital Signs - 8 hr 03/20/22 23:24 Temperature 98.1 F Pulse Rate 76 Respiratory Rate 18 Blood Pressure 150/73 H Pulse Oximetry 97 Oxygen Delivery Method Room Air MDM - URI/Sore Throat Imaging Data Chest x-ray: Radiologist's Impression: Close Chest X-Ray (Signed) Yohannes Honeycutt - 03/20/22 Shoulder X-Ray (Signed) Titi Dickinson - 01/15/22 Ribs X-Ray (Signed) Mushtaq Zurita - 12/06/[address] (Signed) Harrison Nunez - 11/12/21 Chest X-Ray (Signed) Poly Faust - 10/15/20 Chest X-Ray (Signed) Poly Faust - 11/07/19 Launch?[address] [address] XRay Report Signed Patient: Dylon Matthew MR#: [id number] : 1945 Acct:[id number] Age/Sex: 76 / M Date of Service: 03/20/22 Loc: ED Accession Number: [id number] ?? Procedure: XR chest 2V Ordering Provider: Anahi Heredia D.O. PROCEDURE:? XR CHEST 2V ? INDICATIONS:? Persistant cough for 1 month ? TECHNIQUE:? 2 views of the chest were acquired.? ? COMPARISON:? [facility], CT, CT KUB, 02/25/2022, 1:43.? [facility], CR, XR CHEST 2V, 10/15/2020, 2:33. ? FINDINGS:? ? Surgical changes and devices:? None.? ? Lungs and pleura:? There are patchy indistinct opacities in the lung bases, right greater than left, corresponding to small areas of consolidation in the lung bases on the prior CT.? No pleural effusions or pneumothorax.? ? Mediastinum:? Mediastinal contours are normal.? Heart size is normal.? ? Bones and chest wall:? No suspicious bony abnormalities.? Soft tissues appear unremarkable.? ? IMPRESSION:? ? 1. Patchy indistinct opacities in the lung bases corresponding to areas of consolidation on the prior CT are nonspecific but suggestive of pneumonia including from possible atypical etiologies. ? ? Dictated by: Yoahnnes Honeycutt M.D. on 03/21/2022 at 0:46 ? ? Approved by: Yohannes Honeycutt M.D. on 03/21/2022 at 0:48?? MDM Narrative Medical decision making narrative: This is a 76-year-old male with no known lung disease with chronic cough for the past month. Patient had COVID swab recently as an outpatient which was negative chest x-ray shows patchy changes consistent with possible pneumonia. Patient owns appropriate based on his exam and clinical changes to be treated for bacterial pneumonia. No signs of sepsis. Patient has not been hypoxic or tachycardic. Discharge Plan Departure Patient Disposition: Home Clinical Impression: Pneumonia Instructions: DI for Pneumonia -- Adult Activity Restrictions/Additional Instructions: Please follow-up if you are not improving over the next week. Your chest x-ray does show changes consistent with pneumonia. Take antibiotics until completely gone. Please start these in the morning. Prescription sent to [facility] in [place]. Please return for rapidly worsening symptoms, new fevers, increasing shortness of breath, chest pain or passing out, new swelling in her extremities or other new or concerning symptoms. Prescriptions: New amoxicillin-pot clavulanate 875-125 mg tablet 1 tab PO Q12H Qty: 20 0RF No Action ibuprofen 600 mg tablet 600 mg PO TID PRN (Reason: pain) Qty: 90 1RF citalopram 40 mg tablet See Rx Instructions .ROUTE .COMPLEX Qty: 90 0RF Dose Instruction: take 1 tablet by mouth once daily Rx Instructions: take 1 tablet by mouth once daily lamotrigine 200 mg tablet 200 mg PO BID Qty: 90 0RF Rx Instructions: Take only 1 tablet daily for 2 weeks and then increase to twice daily. hydroxyzine HCl 25 mg tablet 25 mg PO QID PRN (Reason: sleep) Qty: 20 5RF trazodone 50 mg tablet 50 mg PO BEDTIME PRN (Reason: insomnia) Qty: 14 0RF tramadol 50 mg tablet 50 mg PO Q6-8H PRN (Reason: pain) Qty: 14 0RF Referrals: David Caballero DO [Primary Care Provider] - Visit Report Forms: Patient Portal/API
== END 2022-03-21 02:06 | disposition home or self-care (01) ==
PROVIDERS: Emergency Provider Emergency Medicine; PCP Family Medicine
DX: J18.9 Pneumonia, unspecified organism (principal)
CPT/HCPCS: 71046; 99283

== ENCOUNTER 2022-04-04 14:59 | Emergency (ER) | payer OTHER, SELFPAY ==
[2022-04-04] VITALS (9 sets, daily range): BP systolic 131–154; BP diastolic 66–73; PULSE 58–81; RESP 22–31; TEMP 36.9; O2SAT 94–99
[2022-04-04 15:41] LABS: Alanine Aminotransferase 18 IU/L (<50); Albumin 4.6 g/dL (3.5-5.0); Albumin Globulin Ratio 1.3 (1.0-2.8); Alkaline Phosphatase 97 U/L (38-126); Aspartate Aminotransferase 32 IU/L (17-59); Bilirubin Total 1.3 mg/dL (0.2-1.3); Blood Urea Nitrogen 19 mg/dL (9-20); Carbon Dioxide 27 mmol/L (22-32); Chloride 101 mmol/L (98-107); Estimated Glomerular Filt Rate > 60 mL/min (>60); Globulin 3.6 g/dL (1.7-4.1); Glucose 107 mg/dL (80-110); Lipase 41 U/L (23-300); Sodium 137 mmol/L (137-145); Total Protein 8.2 g/dL (6.3-8.2)
[2022-04-04 15:43] LABS: HEMOLYSIS 105 (0-50); Potassium 4.8 mmol/L (3.4-5.1)
[2022-04-04 16:04] LABS: Add Manual Diff / Slide Review NO; Basophils Absolute Auto 100 /uL (0-100); Basophils Percent Auto 0.7 % (0-2); Eosinophils Absolute Auto 100 /uL (0-450); Eosinophils Percent Auto 0.8 % (2-4); Hematocrit 49.2 % (41-53); Hemoglobin 16.8 g/dL (13.5-17.5); Lymphocytes Absolute Auto 1200 /uL (1100-4500); Lymphocytes Percent Auto 14.3 % (25-40); Monocytes Absolute Auto 500 /uL (0-900); Monocytes Percent Auto 5.3 % (3-14); Neutrophils Absolute Auto 6800 /uL (1500-7000); Neutrophils Percent Auto 78.9 % (50-75); Platelet Count 225 X10^3/uL (150-400); Red Cell Distribution Width 14.3 % (11.6-14.8); White Blood Cell Count 8.6 X10^3/uL (4.5-11.0)
--- NOTE | 2022-04-04 17:51 | DI.CT.S_ITS ---
PROCEDURE: CT ABDOMEN PELVIS WO CON INDICATIONS: Periumbilical pain TECHNIQUE: Noncontrast 5 mm thick sections acquired from the diaphragms to the symphysis. 5 mm coronal and sagittal reformats were then performed. For radiation dose reduction, the following was used: automated exposure control, adjustment of mA and/or kV according to patient size. COMPARISON: [facility], CT, CT KUB, 02/25/2022, 1:43. FINDINGS: Image quality: Excellent. ABDOMEN: Lung bases: Ill-defined masslike consolidation involving anterolateral aspect of right middle lobe near right lung base is seen and measures 1.4 x 1.2 cm in size series 4, image 5. Overall appearance of this area has decreased in size compared to 02/25/2022 study suggestive of resolving infiltrate. Scattered scarring/atelectasis in periphery of bilateral lung bases are also noted. Heart size is enlarged, no pericardial effusion. Solid organs: Liver is normal in size. Gallbladder is within normal limits. Pancreas is normal in contours. Spleen is normal in size. Thickened left adrenal gland is seen, no adrenal nodule is noted. Right adrenal gland is within normal limits. Kidneys are normal in size, without hydronephrosis or nephrolithiasis. Right renal cysts are again seen. Excreted contrast within bilateral renal collecting system and proximal ureter is seen. Peritoneum and bowel: Unenhanced bowel loops demonstrate normal wall thickness and caliber. No free fluid or air. Mild fecal stasis in the colon is seen. Appendix is not definitively seen on the current study although no inflammatory changes are seen in right lower quadrant abdomen to suggest acute appendicitis. Nodes and vessels: No retroperitoneal or mesenteric adenopathy by size criteria. Aorta and inferior vena cava are normal in caliber. Miscellaneous: No ventral hernias. PELVIS: Genitourinary: There is mild anterior bladder wall thickening which may be due to under distension. No definite bladder wall mass is seen. Enlarged prostate gland with mass effect on floor of urinary bladder is again seen and unchanged from prior study. Surgical clips are again noted in the region of prostate gland. Miscellaneous: No inguinal hernias or adenopathy. Bones: No suspicious bony lesions. No vertebral body compression fractures. IMPRESSION: 1. Appendix is not definitely seen on the current study although no secondary CT signs of acute appendicitis is noted in right lower quadrant abdomen. No bowel obstruction or abnormal bowel wall thickening. No free fluid or free air. 2. Suggestion of mild bladder wall thickening which may be due to under distension. Low-grade cystitis cannot be excluded. Enlarged prostate gland with mass effect on floor of urinary bladder. 3. Interval decrease in size of masslike consolidations in anterolateral aspect of right middle lobe suggestive of resolving infiltrates. Continue follow-up until resolution is recommended to rule out underlying malignancy. Scattered atelectasis also seen in bilateral lung bases. 4. Thickened left adrenal gland, no discrete adrenal nodule. Dictated by: Neftali Mcdowell M.D. on 04/04/2022 at 17:33 Approved by: Neftali Mcdowell M.D. on 04/04/2022 at 17:40
--- NOTE | 2022-04-04 18:30 | PC.NURSE ---
Per DI pt vomited immediately following administration of contrast. Pt back in room and still reports being nauseous. Notified provider. Pt denies any prior reactions to contrast.
[2022-04-04] MEDS: ONDANSETRON 4 MG/2 ML INJ IV (18:34)
--- NOTE | 2022-04-04 18:43 | PC.NURSE ---
Pt reports recent homelessness, and now staying on a boat but unable to get access to food due to fatigue. Reports lack of good food and eating canned food only might be why his stomach hurts. LUL Reed notified.
[2022-04-04 19:11] LABS: Ictotest Urine Negative (Negative)
[2022-04-04] MEDS: KETOROLAC 30 MG/ML VIAL 15 MG IV (19:18)
[2022-04-04 19:26] LABS: Amorphous Sediment Urine 1+; Bacteria Urine None Seen; Mucus Urine 1+ (Negative); RBC Urine None Seen (0-5/HPF); Squamous Epithelial Cell Urine 0-1 /HPF (0-5/HPF); WBC Urine 0-1/HPF (0-5/HPF)
--- NOTE | 2022-04-04 19:36 | CM.SWNOTE ---
VIDEO SYSTEM REPAIRER Note VIDEO SYSTEM REPAIRER receives consult and enters room to meet with patient. Patient is 76 y/o male who presents to ED via EMS due to concern for abdominal pain. Patient's PCP is Dr. Caballero, patient endorses f/u appt for tomorrow but per EMR it is scheduled for 04/06/22. Patient has [facility] insurance. Patient has hx of Hypertension, excessive daytime sleepiness, hx of malignant neoplasm of prostate and bipolar 1 disorder. Patient presents as calm, euthymic and tired. Patient endorses that he has been residing on a boat for the last 8 years and has been having financial issues and was evicted. Patient endorses that the partner marketing manager called 911. Patient endorses that he has been in his bed for several days and too weak to eat. Patient denies family or friends or local supports. Per EMR, patient has three contacts listed. Patient endorses he has contacted [employer], [employer] and [employer] and patient states he is on waitlists and knows of resources. Patient states he also called the senior center. Patient endorses he is aware of housing resources Patient endorses he is unsure if he can return to his boat today. VIDEO SYSTEM REPAIRER provides patient with senior resource guide. Patient endorses concern with his ability to talk. Per RN, patient walked to restroom with no issues. VIDEO SYSTEM REPAIRER reviews the above with ED provider Garth Smiley PA-C who indicates that patient is medically clear for d/c. VIDEO SYSTEM REPAIRER informs ED provider that patient would like to talk to provider about lab results. Plan: patient to d/c to community via [employer] voucher program, patient to f/u with PCP appt. NARESH Padron
--- NOTE | 2022-04-04 19:40 | ED_ITS ---
HPI - Abdominal Pain <Garth Smiley PA-C - Last Filed: 04/04/22 19:51> General Chief Complaint: Abdominal Pain Stated Complaint: abd pain Time Seen by Provider: 04/04/22 17:01 Source: patient and EMS Mode of arrival: EMS History of Present Illness HPI narrative: 76-year-old male with past medical history hypertension, bipolar disorder, venous insufficiency presents to the ED with 1 week of periumbilical pain. Pat ient complains of mild nausea, anorexia. Patient denies fever, chills, chest pain, shortness of breath, vomiting, dysuria, flank pain, lightheadedness, dizziness, syncope. Patient does endorse fatigue. Patient states that he has bipolar disorder, and will frequently have abdominal pain stemming from that. However, his pain has been worse this time around. Related Data Previous Rx's Medication Instructions Recorded ibuprofen 600 mg tablet 600 mg PO TID PRN pain #90 tabs 01/21/20 hydroxyzine HCl 25 mg tablet 25 mg PO QID PRN sleep #20 tabs 08/06/20 amoxicillin 875 mg-potassium 1 tab PO Q12H #20 tabs 03/21/22 clavulanate 125 mg tablet lamotrigine 200 mg tablet 200 mg PO BID #90 tabs 03/23/22 citalopram 40 mg tablet See Rx Instructions .Route 03/29/22 .COMPLEX #30 tabs cyclobenzaprine 10 mg tablet 10 mg PO TID PRN muscle spasm #60 04/05/22 tabs Allergies Allergy/AdvReac Type Severity Reaction Status Date / Time No Known Drug Allergies Allergy Verified 04/05/22 14:22 Review of Systems <Garth Smiley PA-C - Last Filed: 04/04/22 19:51> Review of Systems ROS Unobtainable: All systems reviewed & are unremarkable except as noted in HPI and below Constitutional Constitutional: Denies chills, Reports fatigue, Denies fever(s), Denies frequent falls, Denies lethargy and Denies weakness Eyes Eyes: Denies change in vision, Denies eye discharge, Denies irritation and Denies loss of vision ENT Ears, Nose, Mouth, and Throat: Denies change in voice, Denies dizziness, Denies neck pain, Denies sore throat and Denies throat swelling Cardiovascular Cardiovascular: Denies chest pain, Denies irregular heart rhythm, Denies lightheadedness, Denies palpitations, Denies dyspnea, Denies dyspnea on exertion and Denies orthopnea Respiratory Respiratory: Denies cough, Denies dyspnea, Denies dyspnea on exertion and Denies wheezing Gastrointestinal Gastrointestinal: Reports abdominal pain, Denies change in bowel habits, Denies diarrhea, Reports nausea and Denies vomiting Genitourinary Genitourinary: Denies hematuria, Denies flank pain, Denies urinary incontinence and Denies urinary urgency Musculoskeletal Musculoskeletal: Denies back pain, Denies muscle weakness, Denies neck pain, Denies numbness and Denies tingling Integumentary/Breasts Skin/Breast: Denies pruritus, Denies erythema, Denies rash and Denies wounds Neurologic Neurologic: Denies behavioral changes, Denies confusion, Denies dizziness, Denies frequent falls, Denies loss of vision, Denies numbness, Denies tingling and Denies weakness Psychiatric Psychiatric: Denies anxiety, Denies behavioral changes, Denies confusion, Denies depression, Denies homicidal ideation and Denies suicidal ideation Endocrine Endocrine: Reports fatigue, Denies flushing and Denies palpitations Hematologic/Lymphatic Hematologic/Lymphatic: Denies easy bruising Allergic/Immunologic Allergic/Immunologic: Denies urticaria, Denies throat swelling and Denies wheezing Patient History <Garth Smiley PA-C - Last Filed: 04/04/22 19:51> Medical History (Updated 04/05/22 @ 15:27 by David Caballero DO) Bilateral lower extremity edema Bipolar 1 disorder, depressed Chronic right shoulder pain Excessive daytime sleepiness History of recent stressful life event Leg wound, left Social History Smoking Status: Former smoker Smoking Status: Former smoker tobacco type: cigarettes alcohol intake frequency: a few times a month Substance Use Type: does not use Exam <Garth Smiley PA-C - Last Filed: 04/04/22 19:51> Narrative Exam Narrative: Const General:?cooperative, healthy appearing and comfortable [facility] Head:?normal to inspection Ears:?hearing grossly normal bilaterally Nose:?external nose normal Face and sinus:?normal facial exam and sinuses nontender Mouth:?oral mucosae normal Throat:?posterior oropharynx normal Eyes General:?appearance normal, both eyes and all related structures Neck Neck:?normal visual inspection and no lymphadenopathy noted Resp Effort & Inspection:?normal respiratory effort Auscultation:?clear to auscultation bilaterally Cardio Rate:?regular rate Rhythm:?regular rhythm GI Abdomen is soft, nondistended, mildly tender to palpation in the periumbilical area. No CVA tenderness. Neuro General:?patient alert, patient awake and patient oriented x3 Initial Vital Signs Initial Vital Signs: Vital Signs Temperature 98.5 F 04/04/22 15:06 Pulse Rate 81 04/04/22 15:06 Respiratory Rate 22 04/04/22 15:06 Blood Pressure 154/67 H 04/04/22 15:06 Pulse Oximetry 99 04/04/22 15:06 Oxygen Delivery Method 04/04/22 15:06 <Parvin Stephen DO - Last Filed: 04/07/22 08:46> Initial Vital Signs Initial Vital Signs: Vital Signs Temperature 98.5 F 04/04/22 15:06 Pulse Rate 81 04/04/22 15:06 Respiratory Rate 22 04/04/22 15:06 Blood Pressure 154/67 H 04/04/22 15:06 Pulse Oximetry 99 04/04/22 15:06 Oxygen Delivery Method 04/04/22 15:06 Course <Garth Smiley PA-C - Last Filed: 04/04/22 19:51> Orders Ordered: Discontinued Medications Ketorolac Tromethamine (Ketorolac 30 Mg/Ml Vial) 15 mg IV NOW ONE Stop: 04/04/22 19:08 Last Admin: 04/04/22 19:18 Dose: 15 mg Documented By: BS Ondansetron HCl (Ondansetron 4 Mg/2 Ml Inj) 4 mg IV NOW ONE Stop: 04/04/22 18:30 Last Admin: 04/04/22 18:34 Dose: 4 mg Documented By: SB Vital Signs Vital signs: Vital Signs - 8 hr 04/04/22 15:06 04/04/22 17:08 04/04/22 17:10 Temperature 98.5 F Pulse Rate 81 64 Respiratory Rate 22 Blood Pressure 154/67 H 154/70 H Pulse Oximetry 99 99 Oxygen Delivery Method Room Air 04/04/22 17:10 04/04/22 17:30 04/04/22 17:31 Temperature Pulse Rate 61 60 Respiratory Rate 24 Blood Pressure 131/69 Pulse Oximetry 99 97 Oxygen Delivery Method 04/04/22 17:31 04/04/22 18:00 04/04/22 18:00 Temperature Pulse Rate 58 L 61 Respiratory Rate 29 H 31 H Blood Pressure 144/66 H Pulse Oximetry 97 97 Oxygen Delivery Method 04/04/22 18:30 04/04/22 18:30 04/04/22 19:00 Temperature Pulse Rate 63 Respiratory Rate 22 Blood Pressure 145/69 H 142/73 H Pulse Oximetry 97 Oxygen Delivery Method 04/04/22 19:00 Temperature Pulse Rate 62 Respiratory Rate 24 Blood Pressure Pulse Oximetry 94 Oxygen Delivery Method Room Air <Parvin Stephen DO - Last Filed: 04/07/22 08:46> Orders Ordered: Discontinued Medications Ketorolac Tromethamine (Ketorolac 30 Mg/Ml Vial) 15 mg IV NOW ONE Stop: 04/04/22 19:08 Last Admin: 04/04/22 19:18 Dose: 15 mg Documented By: BS Ondansetron HCl (Ondansetron 4 Mg/2 Ml Inj) 4 mg IV NOW ONE Stop: 04/04/22 18:30 Last Admin: 04/04/22 18:34 Dose: 4 mg Documented By: SB Vital Signs Vital signs: Vital Signs - 8 hr 04/04/22 15:06 04/04/22 17:08 04/04/22 17:10 Temperature 98.5 F Pulse Rate 81 64 Respiratory Rate 22 Blood Pressure 154/67 H 154/70 H Pulse Oximetry 99 99 Oxygen Delivery Method Room Air 04/04/22 17:10 04/04/22 17:30 04/04/22 17:31 Temperature Pulse Rate 61 60 Respiratory Rate 24 Blood Pressure 131/69 Pulse Oximetry 99 97 Oxygen Delivery Method 04/04/22 17:31 04/04/22 18:00 04/04/22 18:00 Temperature Pulse Rate 58 L 61 Respiratory Rate 29 H 31 H Blood Pressure 144/66 H Pulse Oximetry 97 97 Oxygen Delivery Method 04/04/22 18:30 04/04/22 18:30 04/04/22 19:00 Temperature Pulse Rate 63 Respiratory Rate 22 Blood Pressure 145/69 H 142/73 H Pulse Oximetry 97 Oxygen Delivery Method 04/04/22 19:00 Temperature Pulse Rate 62 Respiratory Rate 24 Blood Pressure Pulse Oximetry 94 Oxygen Delivery Method Room Air MDM - Abdominal Pain <Garth Smiley PA-C - Last Filed: 04/04/22 19:51> Lab Data Attestation: I reviewed the patient's lab results. Lab results narrative: Labs within normal limits. UA negative for UTI Result diagrams: 04/04/22 15:21 04/04/22 15:21 Labs: Lab Results 04/04/22 04/04/22 04/04/22 Range/Units 15:21 15:21 18:20 WBC 8.6 (4.5-11.0) X10^3/uL RBC 5.60 (4.5-5.9) X10^6/uL Hgb 16.8 (13.5-17.5) g/dL Hct 49.2 (41-53) % MCV 88.0 (80-100) fL MCH 30.0 (26-34) PG MCHC 34.0 (30-36) % RDW 14.3 (11.6-14.8) % Plt Count 225 (150-400) X10^3/uL Neut % (Auto) 78.9 H (50-75) % Lymph % (Auto) 14.3 L (25-40) % Ransom % (Auto) 5.3 (3-14) % Eos % (Auto) 0.8 L (2-4) % Baso % (Auto) 0.7 (0-2) % Neut # (Auto) 6800 (5195-3617) /uL Lymph # (Auto) 1200 (6508-8553) /uL Ransom # (Auto) 500 (0-900) /uL Eos # (Auto) 100 (0-450) /uL Baso # (Auto) 100 (0-100) /uL Sodium 137 (137-145) mmol/L Potassium 4.8 (3.4-5.1) mmol/L Chloride 101 (98-107) mmol/L Carbon Dioxide 27 (22-32) mmol/L BUN 19 (9-20) mg/dL Creatinine 0.76 (0.66-1.25) mg/dL Estimated GFR > 60 (>60) mL/min BUN/Creatinine Ratio 25.0 H (6-22) Glucose 107 (80-110) mg/dL Calcium 9.0 (8.4-10.2) mg/dL Total Bilirubin 1.3 (0.2-1.3) mg/dL AST 32 (17-59) IU/L ALT 18 (<50) IU/L Alkaline Phosphatase 97 (38-126) U/L Total Protein 8.2 (6.3-8.2) g/dL Albumin 4.6 (3.5-5.0) g/dL Globulin 3.6 (1.7-4.1) g/dL Albumin/Globulin Ratio 1.3 (1.0-2.8) Lipase 41 (23-300) U/L Ur Bilirubin Confirm Negative (Negative) Urine RBC (0-5/HPF) Urine WBC (0-5/HPF) Ur Squamous Epith Cells (0-5/HPF) Amorphous Sediment Urine Bacteria (None) Urine Mucus (Negative) Ur Culture Indicated? 04/04/22 Range/Units 18:20 WBC (4.5-11.0) X10^3/uL RBC (4.5-5.9) X10^6/uL Hgb (13.5-17.5) g/dL Hct (41-53) % MCV (80-100) fL MCH (26-34) PG MCHC (30-36) % RDW (11.6-14.8) % Plt Count (150-400) X10^3/uL Neut % (Auto) (50-75) % Lymph % (Auto) (25-40) % Ransom % (Auto) (3-14) % Eos % (Auto) (2-4) % Baso % (Auto) (0-2) % Neut # (Auto) (5766-4334) /uL Lymph # (Auto) (6146-7625) /uL Ransom # (Auto) (0-900) /uL Eos # (Auto) (0-450) /uL Baso # (Auto) (0-100) /uL Sodium (137-145) mmol/L Potassium (3.4-5.1) mmol/L Chloride (98-107) mmol/L Carbon Dioxide (22-32) mmol/L BUN (9-20) mg/dL Creatinine (0.66-1.25) mg/dL Estimated GFR (>60) mL/min BUN/Creatinine Ratio (6-22) Glucose (80-110) mg/dL Calcium (8.4-10.2) mg/dL Total Bilirubin (0.2-1.3) mg/dL AST (17-59) IU/L ALT (<50) IU/L Alkaline Phosphatase (38-126) U/L Total Protein (6.3-8.2) g/dL Albumin (3.5-5.0) g/dL Globulin (1.7-4.1) g/dL Albumin/Globulin Ratio (1.0-2.8) Lipase (23-300) U/L Ur Bilirubin Confirm (Negative) Urine RBC None seen (0-5/HPF) Urine WBC 0-1/hpf (0-5/HPF) Ur Squamous Epith Cells 0-1 /hpf (0-5/HPF) Amorphous Sediment 1+ Urine Bacteria None seen (None) Urine Mucus 1+ H (Negative) Ur Culture Indicated? Culture not indicate Point of care testing: Urine Dip Bedside Urine Glucose Negative Bedside Urine Bilirubin + 1 Bedside Urine Ketone - Negative Urine Specific [facility] 1.015 Bedside Urine Occult Blood - Negative Bedside Urine pH 7.0 Bedside Urine Protein +/- 15 Bedside Urine Urobilinogen 1+ 2mg Bedside Urine Nitrite - Negative Bedside Urine Leukocytes - Negative Esterase Imaging Data CT scan - abdomen/pelvis: Radiologist's Impression: PROCEDURE:? CT ABDOMEN PELVIS WO CON ? INDICATIONS:? Periumbilical pain ? TECHNIQUE:? Noncontrast 5 mm thick sections acquired from the diaphragms to the symphysis.? 5 mm coronal and sagittal reformats were then performed.? For radiation dose reduction, the following was used:? automated exposure control, adjustment of mA and/or kV according to patient size.? ? COMPARISON:? [facility], CT, CT KUB, 02/25/2022, 1:43. ? FINDINGS:? Image quality:? Excellent.? ? ABDOMEN:? Lung bases:? Ill-defined masslike consolidation involving anterolateral aspect of right middle lobe near right lung base is seen and measures 1.4 x 1.2 cm in size series 4, image 5.? Overall appearance of this area has decreased in size compared to 02/25/2022 study suggestive of resolving infiltrate.? Scattered scarring/atelectasis in periphery of bilateral lung bases are also noted.? Heart size is enlarged, no pericardial effusion.? ? Solid organs:? Liver is normal in size.? Gallbladder is within normal limits.? Pancreas is normal in contours.? Spleen is normal in size.? Thickened left adrenal gland is seen, no adrenal nodule is noted.? Right adrenal gland is within normal limits.? Kidneys are normal in size, without hydronephrosis or nephrolithiasis.? Right renal cysts are again seen.? Excreted contrast within bilateral renal collecting system and proximal ureter is seen. ? Peritoneum and bowel:? Unenhanced bowel loops demonstrate normal wall thickness and caliber.? No free fluid or air.? Mild fecal stasis in the colon is seen.? Appendix is not definitively seen on the current study although no inflammatory changes are seen in right lower quadrant abdomen to suggest acute appendicitis. ? Nodes and vessels:? No retroperitoneal or mesenteric adenopathy by size criteria.? Aorta and inferior vena cava are normal in caliber.? ? Miscellaneous:? No ventral hernias.? ? ? PELVIS:? Genitourinary:? There is mild anterior bladder wall thickening which may be due to under distension.? No definite bladder wall mass is seen.? Enlarged prostate gland with mass effect on floor of urinary bladder is again seen and unchanged from prior study.? Surgical clips are again noted in the region of prostate gland. ? Miscellaneous:? No inguinal hernias or adenopathy.? ? Bones:? No suspicious bony lesions.? No vertebral body compression fractures.? ? IMPRESSION:? 1. Appendix is not definitely seen on the current study although no secondary CT signs of acute appendicitis is noted in right lower quadrant abdomen.? No bowel obstruction or abnormal bowel wall thickening.? No free fluid or free air. 2. Suggestion of mild bladder wall thickening which may be due to under distension.? Low-grade cystitis cannot be excluded.? Enlarged prostate gland with mass effect on floor of urinary bladder. 3.? Interval decrease in size of masslike consolidations in anterolateral aspect of right middle lobe suggestive of resolving infiltrates.? Continue follow-up until resolution is recommended to rule out underlying malignancy.? Scattered atelectasis also seen in bilateral lung bases. 4. Thickened left adrenal gland, no discrete adrenal nodule. ? ? Dictated by: Neftali Mcdowell M.D. on 04/04/2022 at 17:33 ? ? Approved by: Neftali Mcdowell M.D. on 04/04/2022 at 17:40 ? MDM Narrative Medical decision making narrative: 76-year-old male with past medical history hypertension, bipolar disorder, venous insufficiency presents to the ED with 1 week of periumbilical pain. Concern for pancreatitis versus gastritis versus GERD versus bowel obstruction versus gastroenteritis versus UTI versus other intra-abdominal pathology. Will obtain labs, UA, CT abdomen pelvis. Will give ketorolac and Zofran for symptoms. Workup unremarkable. No acute findings in the CT abdomen pelvis UA negative for UTI. Labs within normal limits. Patient's symptoms improved with ketorolac and Zofran. Discharge patient home with ED return precautions. Patient verbalized understanding. <Parvin Stephen DO - Last Filed: 04/07/22 08:46> Lab Data Labs: Lab Results 04/04/22 04/04/22 04/04/22 Range/Units 15:21 15:21 18:20 WBC 8.6 (4.5-11.0) X10^3/uL RBC 5.60 (4.5-5.9) X10^6/uL Hgb 16.8 (13.5-17.5) g/dL Hct 49.2 (41-53) % MCV 88.0 (80-100) fL MCH 30.0 (26-34) PG MCHC 34.0 (30-36) % RDW 14.3 (11.6-14.8) % Plt Count 225 (150-400) X10^3/uL Neut % (Auto) 78.9 H (50-75) % Lymph % (Auto) 14.3 L (25-40) % Ransom % (Auto) 5.3 (3-14) % Eos % (Auto) 0.8 L (2-4) % Baso % (Auto) 0.7 (0-2) % Neut # (Auto) 6800 (3555-9442) /uL Lymph # (Auto) 1200 (9838-9789) /uL Ransom # (Auto) 500 (0-900) /uL Eos # (Auto) 100 (0-450) /uL Baso # (Auto) 100 (0-100) /uL Sodium 137 (137-145) mmol/L Potassium 4.8 (3.4-5.1) mmol/L Chloride 101 (98-107) mmol/L Carbon Dioxide 27 (22-32) mmol/L BUN 19 (9-20) mg/dL Creatinine 0.76 (0.66-1.25) mg/dL Estimated GFR > 60 (>60) mL/min BUN/Creatinine Ratio 25.0 H (6-22) Glucose 107 (80-110) mg/dL Calcium 9.0 (8.4-10.2) mg/dL Total Bilirubin 1.3 (0.2-1.3) mg/dL AST 32 (17-59) IU/L ALT 18 (<50) IU/L Alkaline Phosphatase 97 (38-126) U/L Total Protein 8.2 (6.3-8.2) g/dL Albumin 4.6 (3.5-5.0) g/dL Globulin 3.6 (1.7-4.1) g/dL Albumin/Globulin Ratio 1.3 (1.0-2.8) Lipase 41 (23-300) U/L Ur Bilirubin Confirm Negative (Negative) Urine RBC (0-5/HPF) Urine WBC (0-5/HPF) Ur Squamous Epith Cells (0-5/HPF) Amorphous Sediment Urine Bacteria (None) Urine Mucus (Negative) Ur Culture Indicated? 04/04/22 Range/Units 18:20 WBC (4.5-11.0) X10^3/uL RBC (4.5-5.9) X10^6/uL Hgb (13.5-17.5) g/dL Hct (41-53) % MCV (80-100) fL MCH (26-34) PG MCHC (30-36) % RDW (11.6-14.8) % Plt Count (150-400) X10^3/uL Neut % (Auto) (50-75) % Lymph % (Auto) (25-40) % Ransom % (Auto) (3-14) % Eos % (Auto) (2-4) % Baso % (Auto) (0-2) % Neut # (Auto) (6907-1978) /uL Lymph # (Auto) (9213-1870) /uL Ransom # (Auto) (0-900) /uL Eos # (Auto) (0-450) /uL Baso # (Auto) (0-100) /uL Sodium (137-145) mmol/L Potassium (3.4-5.1) mmol/L Chloride (98-107) mmol/L Carbon Dioxide (22-32) mmol/L BUN (9-20) mg/dL Creatinine (0.66-1.25) mg/dL Estimated GFR (>60) mL/min BUN/Creatinine Ratio (6-22) Glucose (80-110) mg/dL Calcium (8.4-10.2) mg/dL Total Bilirubin (0.2-1.3) mg/dL AST (17-59) IU/L ALT (<50) IU/L Alkaline Phosphatase (38-126) U/L Total Protein (6.3-8.2) g/dL Albumin (3.5-5.0) g/dL Globulin (1.7-4.1) g/dL Albumin/Globulin Ratio (1.0-2.8) Lipase (23-300) U/L Ur Bilirubin Confirm (Negative) Urine RBC None seen (0-5/HPF) Urine WBC 0-1/hpf (0-5/HPF) Ur Squamous Epith Cells 0-1 /hpf (0-5/HPF) Amorphous Sediment 1+ Urine Bacteria None seen (None) Urine Mucus 1+ H (Negative) Ur Culture Indicated? Culture not indicate Point of care testing: Urine Dip Bedside Urine Glucose Negative Bedside Urine Bilirubin + 1 Bedside Urine Ketone - Negative Urine Specific [facility] 1.015 Bedside Urine Occult Blood - Negative Bedside Urine pH 7.0 Bedside Urine Protein +/- 15 Bedside Urine Urobilinogen 1+ 2mg Bedside Urine Nitrite - Negative Bedside Urine Leukocytes - Negative Esterase Discharge Plan Departure Patient Disposition: Home Clinical Impression: Abdominal pain Instructions: DI for Abdominal Pain-Adult Activity Restrictions/Additional Instructions: You were evaluated in the ED today for abdominal pain. Your labs, urine, CT abdomen pelvis were normal. Please continue taking your antibiotics for the pneumonia. Please follow-up with your PCP tomorrow as you have planned. Return to the ED if his symptoms worsen, you experience uncontrollable nausea, vom iting, versus worsening abdominal pain, fever, chills, chest pain, shortness of breath. Prescriptions: No Action ibuprofen 600 mg tablet 600 mg PO TID PRN (Reason: pain) Qty: 90 1RF lamotrigine 200 mg tablet 200 mg PO BID Qty: 90 3RF Rx Instructions: Take only 1 tablet daily for 2 weeks and then increase to twice daily. citalopram 40 mg tablet See Rx Instructions .ROUTE .COMPLEX Qty: 30 0RF Dose Instruction: take 1 tablet by mouth once daily Rx Instructions: take 1 tablet by mouth once daily hydroxyzine HCl 25 mg tablet 25 mg PO QID PRN (Reason: sleep) Qty: 20 5RF cyclobenzaprine 10 mg tablet 10 mg PO TID PRN (Reason: muscle spasm) Qty: 60 5RF amoxicillin-pot clavulanate 875-125 mg tablet 1 tab PO Q12H Qty: 20 0RF Referrals: David Caballero DO [Primary Care Provider] - Visit Report Forms: Patient Portal/API <Parvin Stephen DO - Last Filed: 04/07/22 08:46> Cosign ED Attending Jyotiature Attestation: I was immediately available in the department for consultation. Documentation has been reviewed. I agree with assessment and plan.
== END 2022-04-04 19:55 | disposition home or self-care (01) ==
PROVIDERS: Emergency Medicine; Emergency Provider Student in an Organized Health Care Education/Training Program; PCP Family Medicine
DX: R10.33 Periumbilical pain (principal)
CPT/HCPCS: 36415; 74176; 80053; 81003; 81015; 83690; 85025; 87086; 93005; 96374; 96375; 99284; J1885; J2405

== ENCOUNTER 2022-05-02 17:40 | Emergency (ER) | payer OTHER, SELFPAY ==
[2022-05-02] VITALS (8 sets, daily range): BP systolic 112–167; BP diastolic 61–78; PULSE 63–111; RESP 16; TEMP 36.9; O2SAT 90–99; BMI 24.3
--- NOTE | 2022-05-02 18:05 | ED_ITS ---
HPI - Psych <Demar Benavides DO - Last Filed: 05/03/22 23:14> General Chief Complaint: Psychiatric Symptoms Stated Complaint: Dizzy, Fall, Failure to thrive, Bipolar Time Seen by Provider: 05/02/22 17:43 History of Present Illness HPI Narrative: 76-year-old male former smoker with history of bipolar and hypertension presents with a chief complaint of an accidental trip and fall presents by EMS for evaluation. He states that he has been feeling poorly for the past few weeks but significantly worse over the past few days. He has been unable to developed a strength even get off his boat to eat or drink. He denies any headache or blurred vision. He has no trouble with speech and denies any numbness, tingling or weakness. He was getting up on a small ladder to adjust the santana on his boat when he lost his balance and fell, this was heard by neighbors in the [facility] who called EMS. He had been seen once earlier in the day and denied transport but this evening was open to the idea. He denies any chest pain or shortness of breath. He is had no abdominal pain or change in bowel habits. He states he has been taking his medications as directed and denies any change in these meds. He does occasionally have suicidal ideation which is nothing new fo r him, he does have access to a firearm but states he would have no intent on using it. He states he has no friends or family locally and no help but is concerned that he can no longer care for himself. His boat has no electricity nor running water. There is report that he is being evicted today or tomorrow and his boat will be towed away Related Data Previous Rx's Medication Instructions Recorded ibuprofen 600 mg tablet 600 mg PO TID PRN pain #90 tabs 01/21/20 hydroxyzine HCl 25 mg tablet 25 mg PO QID PRN sleep #20 tabs 08/06/20 amoxicillin 875 mg-potassium 1 tab PO Q12H #20 tabs 03/21/22 clavulanate 125 mg tablet lamotrigine 200 mg tablet 200 mg PO BID #90 tabs 03/23/22 citalopram 40 mg tablet See Rx Instructions .Route 03/29/22 .COMPLEX #30 tabs cyclobenzaprine 10 mg tablet 10 mg PO TID PRN muscle spasm #60 04/05/22 tabs cephalexin 500 mg capsule 500 mg PO BID #10 caps 05/02/22 Allergies Allergy/AdvReac Type Severity Reaction Status Date / Time No Known Drug Allergies Allergy Verified 04/05/22 14:22 Review of Systems <Demar Benavides DO - Last Filed: 05/03/22 23:14> Review of Systems Narrative: GENERAL: See HPI HEENT: Denies sinus pain, ear pain, sore throat, difficulty swallowing, dizziness. RESPIRATORY: Denies dyspnea, cough, wheezing, hemoptysis, sputum. CARDIOVASCULAR: Denies chest pain, palpitations, orthopnea, edema, GASTROINTESTINAL: Denies nausea, vomiting, abdominal pain, diarrhea, constipation, melena. : Denies dysuria, frequency, incontinence, hematuria, urinary retention. MUSCULOSKELETAL: denies weakness, joint pain, or bony pain SKIN: Denies rash, skin lesions, or other NEUROLOGIC: Denies weakness, headache, numbness, change in speech, confusion, seizures, incoordination. PSYCHIATRIC: See HPI 12 point review of systems is negative except for those stated above Patient History <Demar Benavides DO - Last Filed: 05/03/22 23:14> Medical History Bilateral lower extremity edema Bipolar 1 disorder, depressed Chronic right shoulder pain Excessive daytime sleepiness History of recent stressful life event Leg wound, left Social History Smoking Status: Former smoker Smoking Status: Former smoker tobacco type: cigarettes alcohol intake frequency: a few times a month Substance Use Type: does not use Exam <Demar Benavides DO - Last Filed: 05/03/22 23:14> Narrative Exam Narrative: GENERAL: [76] year old patient appears stated age. Disheveled and unkempt, alert and oriented, GCS is 15 HEAD: Atraumatic. Normocephalic. EYES: Pupils equal round and reactive. Extraocular motions intact. No scleral icterus. No injection or drainage. ENT: Dry mucous membranes, poor dentition throughout Nose without bleeding, purulent drainage. Throat without erythema, tonsillar hypertrophy or exudate. Airway patent. NECK: Trachea midline. Non tender CARDIOVASCULAR: Regular rate and rhythm without murmurs, gallops, or rubs. RESPIRATORY: Decreased breath sounds throughout the prolonged expiratory phase GASTROINTESTINAL: Abdomen soft, non-tender, nondistended. EXTREMITIES: No edema or joint tenderness. BACK: Nontender without deformity or crepitance. No flank tenderness. NEURO: AOx3. SKIN: Poor skin turgor No rash or erythema of visible areas Initial Vital Signs Initial Vital Signs: Vital Signs Pulse Rate 111 H 05/02/22 17:41 Blood Pressure 154/70 H 05/02/22 17:41 Pulse Oximetry 99 05/02/22 17:41 <Parvin Stephen DO - Last Filed: 05/03/22 18:18> Initial Vital Signs Initial Vital Signs: Vital Signs Pulse Rate 111 H 05/02/22 17:41 Blood Pressure 154/70 H 05/02/22 17:41 Pulse Oximetry 99 05/02/22 17:41 Course <Demar Benavides DO - Last Filed: 05/03/22 23:14> Orders Ordered: Discontinued Medications Cefazolin Sodium (Cephalexin 250 Mg Prepack) 1 bottle MISC SEEINSTR ONE Stop: 05/02/22 22:22 Last Admin: 05/02/22 23:18 Dose: 1 bottle Documented By: EB Sodium Chloride (Normal Saline 0.9%) 1,000 mls @ 1,000 mls/hr IV BOLUS ONE Stop: 05/02/22 19:10 Last Infusion: 05/02/22 21:38 Dose: 0 mls/hr Documented By: Admin: 05/02/22 19:33 Dose: 1,000 mls/hr Documented By: CTS Sodium Chloride (Normal Saline 0.9%) 1,000 mls @ 1,000 mls/hr IV BOLUS ONE Stop: 05/02/22 20:50 Last Admin: 05/02/22 19:57 Dose: Not Given Documented By: CTS Vital Signs Vital signs: Vital Signs - 8 hr 05/03/22 17:03 Temperature 98.1 F Pulse Rate 90 Respiratory Rate 18 Blood Pressure [Left Arm] 120/68 Pulse Oximetry 98 Oxygen Delivery Method Room Air <Parvin Stephen DO - Last Filed: 05/03/22 18:18> Orders Ordered: Discontinued Medications Cefazolin Sodium (Cephalexin 250 Mg Prepack) 1 bottle MISC SEEINSTR ONE Stop: 05/02/22 22:22 Last Admin: 05/02/22 23:18 Dose: 1 bottle Documented By: EB Sodium Chloride (Normal Saline 0.9%) 1,000 mls @ 1,000 mls/hr IV BOLUS ONE Stop: 05/02/22 19:10 Last Infusion: 05/02/22 21:38 Dose: 0 mls/hr Documented By: Admin: 05/02/22 19:33 Dose: 1,000 mls/hr Documented By: CTS Sodium Chloride (Normal Saline 0.9%) 1,000 mls @ 1,000 mls/hr IV BOLUS ONE Stop: 05/02/22 20:50 Last Admin: 05/02/22 19:57 Dose: Not Given Documented By: CTS Vital Signs Vital signs: Vital Signs - 8 hr 05/03/22 17:03 Temperature 98.1 F Pulse Rate 90 Respiratory Rate 18 Blood Pressure [Left Arm] 120/68 Pulse Oximetry 98 Oxygen Delivery Method Room Air MDM - Psych <Demar Benavides DO - Last Filed: 05/03/22 23:14> Lab Data Result diagrams: 05/02/22 17:41 05/02/22 17:41 Labs: Lab Results 05/02/22 05/02/22 05/02/22 Range/Units 17:40 17:41 17:41 WBC 9.7 (4.5-11.0) X10^3/uL RBC 6.02 H (4.5-5.9) X10^6/uL Hgb 18.3 H (13.5-17.5) g/dL Hct 52.2 (41-53) % MCV 86.6 (80-100) fL MCH 30.4 (26-34) PG MCHC 35.1 (30-36) % RDW 14.3 (11.6-14.8) % Plt Count 225 (150-400) X10^3/uL Neut % (Auto) 69.5 (50-75) % Lymph % (Auto) 24.2 L (25-40) % [place] % (Auto) 5.4 (3-14) % Eos % (Auto) 0.5 L (2-4) % Baso % (Auto) 0.4 (0-2) % Neut # (Auto) 6700 (8074-6024) /uL Lymph # (Auto) 2300 (3559-6817) /uL [place] # (Auto) 500 (0-900) /uL Eos # (Auto) 100 (0-450) /uL Baso # (Auto) 0 (0-100) /uL Sodium 138 (137-145) mmol/L Potassium 3.9 (3.4-5.1) mmol/L Chloride 97 L (98-107) mmol/L Carbon Dioxide 23 (22-32) mmol/L BUN 28 H (9-20) mg/dL Creatinine 1.15 (0.66-1.25) mg/dL Estimated GFR > 60 (>60) mL/min BUN/Creatinine Ratio 24.3 H (6-22) Glucose 119 H (80-110) mg/dL Calcium 9.8 (8.4-10.2) mg/dL Total Bilirubin 1.5 H (0.2-1.3) mg/dL AST 29 (17-59) IU/L ALT 32 (<50) IU/L Alkaline Phosphatase 131 H (38-126) U/L Total Creatine Kinase 50 L (55-170) U/L CK-MB (CK-2) TNP CK-MB (CK-2) Rel Index TNP Troponin I < 0.012 (0.01-0.034) ng/mL Total Protein 8.9 H (6.3-8.2) g/dL Albumin 5.0 (3.5-5.0) g/dL Globulin 3.9 (1.7-4.1) g/dL Albumin/Globulin Ratio 1.3 (1.0-2.8) Procalcitonin 0.05 (<0.5) ng/mL TSH (0.47-4.68) uIU/mL Urine Color Urine Appearance Urine pH (4.5-8.0) Ur Specific [place] (1.000-1.035) Urine Protein (Negative) Urine Glucose (UA) (Negative) g/dL Urine Ketones (NEGATIVE) Urine Occult Blood (Negative) Urine Nitrate (Negative) Urine Bilirubin (NEGATIVE) Ur Bilirubin Confirm (Negative) Urine Urobilinogen (0.2) E.U./dL Ur Leukocyte Esterase (NEGATIVE) Urine RBC (0-5/HPF) Urine WBC (0-5/HPF) Ur Squamous Epith Cells (0-5/HPF) Urine Bacteria (None) Urine Mucus (Negative) Ur Culture Indicated? U Opiates 300ng/mL cut (Negative) Ur Oxycodone Screen (Negative) Urine Methadone Screen (Negative) Ur Barbiturates Screen (Negative) U Tricyclic Antidepress (Negative) Ur Phencyclidine Scrn (Negative) Ur Amphetamines Screen (Negative) U Methamphetamines Scrn (Negative) Ur MDMA Scrn (Ecstasy) (Negative) U Benzodiazepines Scrn (Negative) Urine Cocaine Screen (Negative) U Marijuana (THC) Screen Ethyl Alcohol < 10 ( - 10) mg/dL SARS-CoV-2 (PCR) Negative (Negative) 05/02/22 05/02/22 05/02/22 Range/Units 17:41 21:43 21:43 WBC (4.5-11.0) X10^3/uL RBC (4.5-5.9) X10^6/uL Hgb (13.5-17.5) g/dL Hct (41-53) % MCV (80-100) fL MCH (26-34) PG MCHC (30-36) % RDW (11.6-14.8) % Plt Count (150-400) X10^3/uL Neut % (Auto) (50-75) % Lymph % (Auto) (25-40) % [place] % (Auto) (3-14) % Eos % (Auto) (2-4) % Baso % (Auto) (0-2) % Neut # (Auto) (1686-6408) /uL Lymph # (Auto) (3803-5209) /uL [place] # (Auto) (0-900) /uL Eos # (Auto) (0-450) /uL Baso # (Auto) (0-100) /uL Sodium (137-145) mmol/L Potassium (3.4-5.1) mmol/L Chloride (98-107) mmol/L Carbon Dioxide (22-32) mmol/L BUN (9-20) mg/dL Creatinine (0.66-1.25) mg/dL Estimated GFR (>60) mL/min BUN/Creatinine Ratio (6-22) Glucose (80-110) mg/dL Calcium (8.4-10.2) mg/dL Total Bilirubin (0.2-1.3) mg/dL AST (17-59) IU/L ALT (<50) IU/L Alkaline Phosphatase (38-126) U/L Total Creatine Kinase (55-170) U/L CK-MB (CK-2) CK-MB (CK-2) Rel Index Troponin I (0.01-0.034) ng/mL Total Protein (6.3-8.2) g/dL Albumin (3.5-5.0) g/dL Globulin (1.7-4.1) g/dL Albumin/Globulin Ratio (1.0-2.8) Procalcitonin (<0.5) ng/mL TSH 1.76 (0.47-4.68) uIU/mL Urine Color Yellow Urine Appearance Clear Urine pH 6.0 (4.5-8.0) Ur Specific [place] 1.015 (1.000-1.035) Urine Protein Trace H (Negative) Urine Glucose (UA) Trace H (Negative) g/dL Urine Ketones 1+ H (NEGATIVE) Urine Occult Blood Negative (Negative) Urine Nitrate Positive H (Negative) Urine Bilirubin 1+ H (NEGATIVE) Ur Bilirubin Confirm Negative (Negative) Urine Urobilinogen 4.0 H (0.2) E.U./dL Ur Leukocyte Esterase Negative (NEGATIVE) Urine RBC 0-1/hpf (0-5/HPF) Urine WBC 1-5/hpf (0-5/HPF) Ur Squamous Epith Cells None seen (0-5/HPF) Urine Bacteria Few (2-10) H (None) Urine Mucus 1+ H (Negative) Ur Culture Indicated? Specimen cultured U Opiates 300ng/mL cut Negative (Negative) Ur Oxycodone Screen Negative (Negative) Urine Methadone Screen Negative (Negative) Ur Barbiturates Screen Negative (Negative) U Tricyclic Antidepress Negative (Negative) Ur Phencyclidine Scrn Negative (Negative) Ur Amphetamines Screen Negative (Negative) U Methamphetamines Scrn Negative (Negative) Ur MDMA Scrn (Ecstasy) Negative (Negative) U Benzodiazepines Scrn Negative (Negative) Urine Cocaine Screen Negative (Negative) U Marijuana (THC) Screen TNP Ethyl Alcohol ( - 10) mg/dL SARS-CoV-2 (PCR) (Negative) <Parvin Stephen, - Last Filed: 05/03/22 18:18> Lab Data Labs: Lab Results 08/30/22 08/30/22 08/30/22 Range/Units 17:40 17:41 17:41 WBC 9.7 (4.5-11.0) X10^3/uL RBC 6.02 H (4.5-5.9) X10^6/uL Hgb 18.3 H (13.5-17.5) g/dL Hct 52.2 (41-53) % MCV 86.6 (80-100) fL MCH 30.4 (26-34) PG MCHC 35.1 (30-36) % RDW 14.3 (11.6-14.8) % Plt Count 225 (150-400) X10^3/uL Neut % (Auto) 69.5 (50-75) % Lymph % (Auto) 24.2 L (25-40) % [place] % (Auto) 5.4 (3-14) % Eos % (Auto) 0.5 L (2-4) % Baso % (Auto) 0.4 (0-2) % Neut # (Auto) 6700 (7758-8630) /uL Lymph # (Auto) 2300 (5983-8742) /uL [place] # (Auto) 500 (0-900) /uL Eos # (Auto) 100 (0-450) /uL Baso # (Auto) 0 (0-100) /uL Sodium 138 (137-145) mmol/L Potassium 3.9 (3.4-5.1) mmol/L Chloride 97 L (98-107) mmol/L Carbon Dioxide 23 (22-32) mmol/L BUN 28 H (9-20) mg/dL Creatinine 1.15 (0.66-1.25) mg/dL Estimated GFR > 60 (>60) mL/min BUN/Creatinine Ratio 24.3 H (6-22) Glucose 119 H (80-110) mg/dL Calcium 9.8 (8.4-10.2) mg/dL Total Bilirubin 1.5 H (0.2-1.3) mg/dL AST 29 (17-59) IU/L ALT 32 (<50) IU/L Alkaline Phosphatase 131 H (38-126) U/L Total Creatine Kinase 50 L (55-170) U/L CK-MB (CK-2) TNP CK-MB (CK-2) Rel Index TNP Troponin I < 0.012 (0.01-0.034) ng/mL Total Protein 8.9 H (6.3-8.2) g/dL Albumin 5.0 (3.5-5.0) g/dL Globulin 3.9 (1.7-4.1) g/dL Albumin/Globulin Ratio 1.3 (1.0-2.8) Procalcitonin 0.05 (<0.5) ng/mL TSH (0.47-4.68) uIU/mL Urine Color Urine Appearance Urine pH (4.5-8.0) Ur Specific [place] (1.000-1.035) Urine Protein (Negative) Urine Glucose (UA) (Negative) g/dL Urine Ketones (NEGATIVE) Urine Occult Blood (Negative) Urine Nitrate (Negative) Urine Bilirubin (NEGATIVE) Ur Bilirubin Confirm (Negative) Urine Urobilinogen (0.2) E.U./dL Ur Leukocyte Esterase (NEGATIVE) Urine RBC (0-5/HPF) Urine WBC (0-5/HPF) Ur Squamous Epith Cells (0-5/HPF) Urine Bacteria (None) Urine Mucus (Negative) Ur Culture Indicated? U Opiates 300ng/mL cut (Negative) Ur Oxycodone Screen (Negative) Urine Methadone Screen (Negative) Ur Barbiturates Screen (Negative) U Tricyclic Antidepress (Negative) Ur Phencyclidine Scrn (Negative) Ur Amphetamines Screen (Negative) U Methamphetamines Scrn (Negative) Ur MDMA Scrn (Ecstasy) (Negative) U Benzodiazepines Scrn (Negative) Urine Cocaine Screen (Negative) U Marijuana (THC) Screen Ethyl Alcohol < 10 ( - 10) mg/dL SARS-CoV-2 (PCR) Negative (Negative) 05/02/22 05/02/22 05/02/22 Range/Units 17:41 21:43 21:43 WBC (4.5-11.0) X10^3/uL RBC (4.5-5.9) X10^6/uL Hgb (13.5-17.5) g/dL Hct (41-53) % MCV (80-100) fL MCH (26-34) PG MCHC (30-36) % RDW (11.6-14.8) % Plt Count (150-400) X10^3/uL Neut % (Auto) (50-75) % Lymph % (Auto) (25-40) % [place] % (Auto) (3-14) % Eos % (Auto) (2-4) % Baso % (Auto) (0-2) % Neut # (Auto) (0025-7661) /uL Lymph # (Auto) (4028-4042) /uL [place] # (Auto) (0-900) /uL Eos # (Auto) (0-450) /uL Baso # (Auto) (0-100) /uL Sodium (137-145) mmol/L Potassium (3.4-5.1) mmol/L Chloride (98-107) mmol/L Carbon Dioxide (22-32) mmol/L BUN (9-20) mg/dL Creatinine (0.66-1.25) mg/dL Estimated GFR (>60) mL/min BUN/Creatinine Ratio (6-22) Glucose (80-110) mg/dL Calcium (8.4-10.2) mg/dL Total Bilirubin (0.2-1.3) mg/dL AST (17-59) IU/L ALT (<50) IU/L Alkaline Phosphatase (38-126) U/L Total Creatine Kinase (55-170) U/L CK-MB (CK-2) CK-MB (CK-2) Rel Index Troponin I (0.01-0.034) ng/mL Total Protein (6.3-8.2) g/dL Albumin (3.5-5.0) g/dL Globulin (1.7-4.1) g/dL Albumin/Globulin Ratio (1.0-2.8) Procalcitonin (<0.5) ng/mL TSH 1.76 (0.47-4.68) uIU/mL Urine Color Yellow Urine Appearance Clear Urine pH 6.0 (4.5-8.0) Ur Specific [place] 1.015 (1.000-1.035) Urine Protein Trace H (Negative) Urine Glucose (UA) Trace H (Negative) g/dL Urine Ketones 1+ H (NEGATIVE) Urine Occult Blood Negative (Negative) Urine Nitrate Positive H (Negative) Urine Bilirubin 1+ H (NEGATIVE) Ur Bilirubin Confirm Negative (Negative) Urine Urobilinogen 4.0 H (0.2) E.U./dL Ur Leukocyte Esterase Negative (NEGATIVE) Urine RBC 0-1/hpf (0-5/HPF) Urine WBC 1-5/hpf (0-5/HPF) Ur Squamous Epith Cells None seen (0-5/HPF) Urine Bacteria Few (2-10) H (None) Urine Mucus 1+ H (Negative) Ur Culture Indicated? Specimen cultured U Opiates 300ng/mL cut Negative (Negative) Ur Oxycodone Screen Negative (Negative) Urine Methadone Screen Negative (Negative) Ur Barbiturates Screen Negative (Negative) U Tricyclic Antidepress Negative (Negative) Ur Phencyclidine Scrn Negative (Negative) Ur Amphetamines Screen Negative (Negative) U Methamphetamines Scrn Negative (Negative) Ur MDMA Scrn (Ecstasy) Negative (Negative) U Benzodiazepines Scrn Negative (Negative) Urine Cocaine Screen Negative (Negative) U Marijuana (THC) Screen TNP Ethyl Alcohol ( - 10) mg/dL SARS-CoV-2 (PCR) (Negative) MDM Narrative Medical decision making narrative: Patient has been signed out to me by Dr. Benavides. I have seen and evaluated patient sleeping. He has been cooperative throughout the day. So for involved and patient accepted at psychiatric facility Discharge Plan Departure Patient Disposition: Xfer Psychiatric Hosp Clinical Impression: Bipolar 1 disorder, Weakness, Acute dehydration, Acute UTI Activity Restrictions/Additional Instructions: *You have been diagnosed with [UTI, dehydration ] *What to do: *Please continue to take your regular medications as directed. [x] New medication prescriptions sent to your pharmacy: [[facility] ] [ ] New medication written as a paper prescription [ ] No new medications given *Please follow up with your primary care provider in 2-3 days, call for an avila ointment. Let them know you were seen in the Emergency Department and that we ask that you be seen in follow up. We will electronically transmit a record of today's note if your PCP is in our system *If you do not have a primary care provider please contact the [facility] Resource line at [phone]. They will ask some questions about your medical history and help get you set up with a doctor in the community. *Return to Emergency Department if you should have any new, worsening or con cerning symptoms, such as [fever greater than 101 F, shaking chills, worsening pain, persistent vomiting or other bothersome symptoms] Referrals: Rickey Caballero DO [Primary Care Provider] - Visit Report Forms: Patient Portal/API
--- NOTE | 2022-05-02 18:11 | DI.RAD.S_ITS ---
PROCEDURE: XR CHEST 1V INDICATIONS: weakness TECHNIQUE: One view of the chest was acquired. COMPARISON: [facility], CR, XR CHEST 2V, 03/21/2022, 0:34. FINDINGS: Surgical changes and devices: None. Lungs and pleura: Lungs are clear. No pleural effusions or pneumothorax. Mediastinum: Mediastinal contours appear normal. Heart size is normal. Bones and chest wall: No suspicious bony lesions. Overlying soft tissues appear unremarkable. IMPRESSION: No acute cardiopulmonary findings Approved by: Arpan Conroy M.D. on 05/02/2022 at 18:43
[2022-05-02 18:34] LABS: Albumin Globulin Ratio 1.3 (1.0-2.8); Alkaline Phosphatase 131 U/L (38-126); Aspartate Aminotransferase 29 IU/L (17-59); BUN Creatinine Ratio 24.3 (6-22); Bilirubin Total 1.5 mg/dL (0.2-1.3); Blood Urea Nitrogen 28 mg/dL (9-20); Calcium 9.8 mg/dL (8.4-10.2); Carbon Dioxide 23 mmol/L (22-32); Chloride 97 mmol/L (98-107); Creatine Kinase 50 U/L (55-170); Estimated Glomerular Filt Rate > 60 mL/min (>60); Ethanol (ETOH) < 10 mg/dL; Globulin 3.9 g/dL (1.7-4.1); Glucose 119 mg/dL (80-110); HEMOLYSIS 20 (0-50); Potassium 3.9 mmol/L (3.4-5.1); Sodium 138 mmol/L (137-145); Total Protein 8.9 g/dL (6.3-8.2)
[2022-05-02 18:40] LABS: Add Manual Diff / Slide Review NO; Basophils Absolute Auto 0 /uL (0-100); Basophils Percent Auto 0.4 % (0-2); Eosinophils Absolute Auto 100 /uL (0-450); Eosinophils Percent Auto 0.5 % (2-4); Hematocrit 52.2 % (41-53); Hemoglobin 18.3 g/dL (13.5-17.5); Lymphocytes Absolute Auto 2300 /uL (1100-4500); Lymphocytes Percent Auto 24.2 % (25-40); Mean Corpuscular HGB Conc 35.1 % (30-36); Mean Corpuscular Hemoglobin 30.4 PG (26-34); Mean Corpuscular Volume 86.6 fL (80-100); Monocytes Absolute Auto 500 /uL (0-900); Monocytes Percent Auto 5.4 % (3-14); Neutrophils Absolute Auto 6700 /uL (1500-7000); Neutrophils Percent Auto 69.5 % (50-75); Platelet Count 225 X10^3/uL (150-400); Red Blood Cell Count 6.02 X10^6/uL (4.5-5.9); Red Cell Distribution Width 14.3 % (11.6-14.8); White Blood Cell Count 9.7 X10^3/uL (4.5-11.0)
[2022-05-02 18:46] LABS: Troponin I < 0.012 ng/mL (0.01-0.034)
[2022-05-02 18:51] LABS: Procalcitonin 0.05 ng/mL (<0.5)
[2022-05-02 18:53] LABS: Alanine Aminotransferase 32 IU/L (<50)
[2022-05-02 19:05] LABS: TSH w/ Reflex to FT4 1.76 uIU/mL (0.47-4.68)
--- NOTE | 2022-05-02 19:09 | DI.CT.S_ITS ---
PROCEDURE: CT HEAD/BRAIN WO CON INDICATIONS: fall, weakness TECHNIQUE: Noncontrast 4.5 mm thick angled axial sections acquired from the foramen magnum to the vertex, with coronal and sagittal reformats. For radiation dose reduction, the following was used: automated exposure control, adjustment of mA and/or kV according to patient size. COMPARISON: [facility], CT, CT HEAD/BRAIN WO CON, 11/12/2021, 2:34. FINDINGS: Image quality: Excellent. CSF spaces: Basal cisterns are patent. No extra-axial fluid collections. Ventricles are normal in size and shape. Brain: No midline shift. No intracranial masses or hemorrhage. Mir-white matter interface is normal. Moderate cerebral and cerebellar volume loss with multifocal white matter chronic ischemic change noted. Atherosclerotic calcification noted associated with cavernous segments of both internal carotid arteries. Skull and face: Calvarium and visualized facial bones are intact, without suspicious lesions. Sinuses: Visualized sinuses and mastoids are clear. IMPRESSION: Atrophy and chronic ischemic change without acute hemorrhage or mass effect. Approved by: Arpan Conroy M.D. on 05/02/2022 at 18:56
--- NOTE | 2022-05-02 19:24 | CM.SWNOTE ---
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 # [phone]). Yazan also reports that patient has current APS case with AARTI Castro and patient has been working with [facility] Rafia Russo (Ph. # [phone]) regarding Medicaid application and seeking equipment operator intermodal yard care. Yazan endorses that he had patient sign a [facility] application as well. NARESH Padron Original Note: SEWING MACHINE TESTER Note SEWING MACHINE TESTER submits referral to APS due to concern for patient's limited ability to care for self and self neglect. APS Online Report Confirmation Number: [id number] NARESH Padron
--- NOTE | 2022-05-02 19:26 | PC.NURSE ---
pt received 1L NS from EMS
--- NOTE | 2022-05-02 19:32 | PC.NURSE ---
pt ate 2 full sandwiches on arrival and drank apple juice tolerated well
[2022-05-02] MEDS: SODIUM CHLORIDE 0.9% 1,000 ML 1000 ML IV (19:33)
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
--- NOTE | 2022-05-02 19:58 | PC.NURSE ---
Pt OOB to bathroom with assist from walker.
[2022-05-02 20:08] LABS: COVID19 -Nasal RAPID Negative (Negative)
[2022-05-02 21:51] LABS: Appearance Urine UA CLEAR; Bilirubin Urine UA 1+ (NEGATIVE); Color Urine UA YELLOW; Glucose Urine UA TRACE g/dL (Negative); Ketones Urine UA 1+ (NEGATIVE); Leukocyte Esterase Urine UA NEGATIVE (NEGATIVE); Nitrite Urine UA POSITIVE (Negative); Occult Blood Urine UA NEGATIVE (Negative); Protein Urine UA TRACE (Negative); Specific Gravity Urine UA 1.015 (1.000-1.035)
[2022-05-02 21:57] LABS: UR Morphine/Opiate cutoff 300 Negative (Negative); Ur Creatinine Normal (Normal); Ur Specific Gravity Normal (Normal); Urine Amphetamines Negative (Negative); Urine Barbiturates Negative (Negative); Urine Benzodiazepines Negative (Negative); Urine Cocaine Negative (Negative); Urine MDMA Negative (Negative); Urine Methadone Negative (Negative); Urine Methamphetamines Negative (Negative); Urine Oxycodone Negative (Negative); Urine Phencyclidine Negative (Negative); Urine Tricyclic Antidepressant Negative (Negative); Urine pH Normal (Normal)
[2022-05-02 22:00] LABS: Ictotest Urine Negative (Negative)
[2022-05-02 22:08] LABS: Bacteria Urine Few (2-10); Culture Indicated Urine Specimen Cultured; Mucus Urine 1+ (Negative); RBC Urine 0-1/HPF (0-5/HPF); Squamous Epithelial Cell Urine None Seen (0-5/HPF); WBC Urine 1-5/HPF (0-5/HPF)
[2022-05-02] MEDS: cephALEXin 250 MG PREPACK 1 BOTTLE MISC (23:18)
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
--- NOTE | 2022-05-03 12:14 | CM.SWNOTE ---
Per ED MD and RN, pt remained in the ED overnight awaiting voluntary placement at [facility] tx and was calm and cooperative. Due to triage needs, no [facility] facilities were able to be called overnight or this morning. AARTI called the following: [facility] am: left msg [place]: full [place]- openings and willing to review, faxed referral, due to pt's age will need an EKG. [facility]- opening and willing to review, faxed referral. Return call from [facility] at [facility] ([phone]) and after completing screening with ED RN and faxing EKG they can accept pt as long as he is aware that they will not be finding housing for him at d/c and if needed they would d/c him to a senior living. AARTI updated RN and JOB who kindly will relay info to pt as well as fax EKG and call [facility] back at [facility] for Accepting Provider information, address for which [facility] location, and time preferred for admit. AARTI called Yazan with [facility] and updated on pt d/c to [facility] today and he recommended calling pt's best advocate Phi at the [facility] and SW attempted with number listed but phone was not accepting calls. Plan: Patient to d/c to [facility] today for voluntary Inpt tx for med management and stabilization. LUL Bales
--- NOTE | 2022-05-03 13:23 | PC.NURSE ---
Addendum entered by Antonino Sultana CNA 05/03/22 13:25: [facility] is accepting provider. Delores with intake provided bed information Original Note: [facility] ETA 1700 to take patient to [facility] in [place] with an arrival ETA of 1830 since [facility] could not accept between [id number].
[2022-05-03 17:03] VITALS: BP 120/68; PULSE 90; RESP 18; TEMP 36.7; O2SAT 98
--- NOTE | 2022-05-03 17:04 | PC.NURSE ---
report given to RN at [facility]
== END 2022-05-03 17:13 ==
PROVIDERS: Emergency Medicine; Emergency Provider Emergency Medicine; PCP Family Medicine
DX: R42 Dizziness and giddiness (principal); W17.89XA Other fall from one level to another, initial encounter; Y92.814 Boat as the place of occurrence of the external cause; R62.7 Adult failure to thrive; Z68.24 Body mass index [BMI] 24.0-24.9, adult; F31.9 Bipolar disorder, unspecified; N39.0 Urinary tract infection, site not specified; E86.0 Dehydration
CPT/HCPCS: 70450; 71045; 80053; 80305; 80320; 81001; 82550; 84145; 84443; 84484; 85025; 87086; 87635; 93005; 96360; 96361; 99284; C9803

== ENCOUNTER 2022-07-08 23:41 | Emergency (ER) | payer OTHER, SELFPAY ==
--- NOTE | 2022-07-08 23:44 | ED_ITS ---
HPI - Back Pain/Injury General Chief Complaint: Back Pain/Injury Stated Complaint: Back Pain Time Seen by Provider: 07/08/22 23:44 History of Present Illness HPI Narrative: 76-year-old male former smoker with history of bipolar presents by EMS for evaluation of back pain that has been bothering him for least the past few days. He denies any traumatic injury but states that it started acting up on him when he was bending over and trying to contorted his body into a closed space and f elt a pulling sensation. He has pain across his low back that is worse with motion and improves with rest. He denies any numbness, tingling or weakness. He has no loss of control of bowel or bladder. He is had no fever or chills. He denies taking any Tylenol Motrin or other medications Related Data Previous Rx's Medication Instructions Recorded citalopram 40 mg tablet See Rx Instructions .Route 06/21/22 .COMPLEX #90 tabs lamotrigine 200 mg tablet 200 mg PO BID #180 tabs 06/21/22 cyclobenzaprine 10 mg tablet 10 mg PO TID PRN muscle spasm #14 07/09/22 tabs ketorolac 10 mg tablet 10 mg PO Q6H PRN pain #14 tabs 07/09/22 Allergies Allergy/AdvReac Type Severity Reaction Status Date / Time No Known Drug Allergies Allergy Verified 04/05/22 14:22 Review of Systems Review of Systems Narrative: GENERAL: Denies chills, fatigue, malaise, fever, sweats. HEENT: Denies sinus pain, ear pain, sore throat, difficulty swallowing, dizziness. RESPIRATORY: Denies dyspnea, cough, wheezing, hemoptysis, sputum. CARDIOVASCULAR: Denies chest pain, palpitations, orthopnea, edema, GASTROINTESTINAL: Denies nausea, vomiting, abdominal pain, diarrhea, constipation, melena. : Denies dysuria, frequency, incontinence, hematuria, urinary retention. MUSCULOSKELETAL: See HPI SKIN: Denies rash, skin lesions, or other NEUROLOGIC: See HPI PSYCHIATRIC: No concerning psychosocial issues. 12 point review of systems is negative except for those stated above Patient History Medical History Bilateral lower extremity edema Bipolar 1 disorder, depressed Chronic right shoulder pain Excessive daytime sleepiness History of recent stressful life event Leg wound, left Social History Smoking Status: Former smoker Smoking Status: Former smoker tobacco type: cigarettes alcohol intake frequency: a few times a month Substance Use Type: does not use Exam Narrative Exam Narrative: GENERAL: [76] year old patient appears stated age. Well-developed patient, in mild distress. HEAD: Atraumatic. Normocephalic. EYES: Pupils equal round and reactive. Extraocular motions intact. No scleral icterus. No injection or drainage. ENT: Nose without bleeding, purulent drainage. Throat without erythema, tonsillar hypertrophy or exudate. Airway patent. NECK: Trachea midline. Non tender CARDIOVASCULAR: Regular rate and rhythm without murmurs, gallops, or rubs. RESPIRATORY: Clear to auscultation. Breath sounds equal bilaterally. No wheezes, rales, or rhonchi. GASTROINTESTINAL: Abdomen soft, non-tender, nondistended. EXTREMITIES: No edema or joint tenderness. BACK: automatic bow maker machine tender but free of any obvious external abnormalities. Patient exam notes decreased range of motion and muscle spasm, but no CVA tenderness, or vertebral point tenderness. There are no symptoms of cauda equina such as saddle anesthesia, and decreased reflexes, decreased sensation or strength. NEURO: AOx3. SKIN: No rash or erythema of visible areas Initial Vital Signs Initial Vital Signs: Vital Signs Pulse Rate 89 07/08/22 23:45 Respiratory Rate 18 07/08/22 23:45 Blood Pressure 157/72 H 07/08/22 23:45 Pulse Oximetry 97 07/08/22 23:45 Oxygen Delivery Method 07/08/22 23:45 Course Orders Ordered: Discontinued Medications Cyclobenzaprine HCl (Cyclobenzaprine 10 Mg Prepack) 1 bottle [facility] SEE[facility] ONE Stop: 07/09/22 01:01 PST Ketorolac Tromethamine (Ketorolac 30 Mg/Ml Vial) 30 mg IM NOW ONE Stop: 07/09/22 01:01 PST Vital Signs Vital signs: Vital Signs - 8 hr 07/08/22 23:45 Pulse Rate 89 Respiratory Rate 18 Blood Pressure 157/72 H Pulse Oximetry 97 Oxygen Delivery Method Room Air MDM - Back Pain/Injury Lab Data Labs: Urine Dip Bedside Urine Glucose Negative Bedside Urine Bilirubin - Negative Bedside Urine Ketone - Negative Urine Specific [place] 1.025 Bedside Urine Occult Blood - Negative Bedside Urine pH 6 Bedside Urine Protein - Negative Bedside Urine Urobilinogen - Negative Bedside Urine Nitrite - Negative Bedside Urine Leukocytes - Negative Esterase MDM Narrative Medical decision making narrative: Multiple etiologies of back pain considered including; Epidural abscess, cauda equina, mass occupying lesion, and other considered, however no red flag findings suggestive of neurosurgical emergency are present. Return precautions discussed and questions answered to his apparent satisfaction Discharge Plan Departure Patient Disposition: Home Clinical Impression: Lumbar back pain Instructions: DI for Back Spasm Activity Restrictions/Additional Instructions: *You have been diagnosed with [back pain.] *What to do: *Please continue to take your regular medications as directed. [ ] New medication prescriptions sent to your pharmacy: [[facility] ] [ ] New medication written as a paper prescription [ ] No new medications given *Please follow up with your primary care provider in 2-3 days, call for an appointment. Let them know you were seen in the Emergency Department and that we ask that you be seen in follow up. We will electronically transmit a record of today's note if your PCP is in our system *If you do not have a primary care provider please contact the [facility] Resource line at [phone]. They will ask some questions about your medical history and help get you set up with a doctor in the community. *Return to Emergency Department if you should have any new, worsening or concerning symptoms, such as [fever greater than 101 F, shaking chills, worsening pain, persistent vomiting or other bothersome symptoms] Prescriptions: New cyclobenzaprine 10 mg tablet 10 mg PO TID PRN (Reason: muscle spasm) Qty: 14 0RF ketorolac 10 mg tablet 10 mg PO Q6H PRN (Reason: pain) Qty: 14 0RF No Action lamotrigine 200 mg tablet 200 mg PO BID Qty: 180 3RF citalopram 40 mg tablet See Rx Instructions .ROUTE .COMPLEX Qty: 90 3RF Dose Instruction: take 1 tablet by mouth once daily Rx Instructions: take 1 tablet by mouth once daily Referrals: Rickey Caballero DO [Primary Care Provider] -
[2022-07-08 23:45] VITALS: BP 157/72; PULSE 89; RESP 18; O2SAT 97; BMI 26.4
[2022-07-09] MEDS: KETOROLAC 30 MG/ML VIAL IM (01:05)
[2022-07-09] MEDS: CYCLOBENZAPRINE 10 MG PREPACK 1 BOTTLE MISC (01:05)
== END 2022-07-09 01:32 | disposition home or self-care (01) ==
PROVIDERS: Emergency Provider Emergency Medicine; PCP Family Medicine
DX: M54.50 Low back pain, unspecified (principal)
CPT/HCPCS: 81003; 96372; 99283; J1885

== ENCOUNTER 2022-11-29 20:26 | Emergency (ER) | payer OTHER, SELFPAY ==
[2022-11-29 20:37] VITALS: BP 139/64; PULSE 90; RESP 18; TEMP 37.1; O2SAT 97; BMI 31.3
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
[2022-11-29] MEDS: ACETAMINOPHEN 325 MG TABLET 650 MG PO (21:22)
== END 2022-11-29 21:32 | disposition home or self-care (01) ==
PROVIDERS: Emergency Provider Emergency Medicine; PCP Family Medicine
DX: S06.0XAA Concussion with loss of consciousness status unknown, initial encounter (principal); Y04.2XXA Assault by strike against or bumped into by another person, initial encounter
CPT/HCPCS: 99283